=== PATIENT | female | born 1995 | race Caucasian/White ===

== ENCOUNTER 2020-08-09 12:49 | Outpatient (REF) | payer BC, SELFPAY | END 2020-08-09 12:50 | disposition home or self-care (01) | LOC: HO.LAB 12:49 | PROVIDERS: PCP Nurse Practitioner Family; Referring Provider Nurse Practitioner Family; Visit Provider Advanced Practice Midwife | DX: Z01.419 Encounter for gynecological examination (general) (routine) without abnormal findings (principal) | CPT/HCPCS: 88141; 88142 ==

== ENCOUNTER 2020-12-03 10:34 | Outpatient (REF) | payer BC, OTHER, SELFPAY ==
[2020-12-03 14:37] LABS: Alanine Aminotransferase 15 U/L (0-31); Albumin Level 4.3 g/dL (3.5-5.0); Alkaline Phosphatase 49 U/L (39-117); Anion Gap 11 (12-20); Aspartate Amino Transferase 16 U/L (5-31); Bilirubin Total 0.9 mg/dL (0.0-1.0); Blood Urea Nitrogen 13 mg/dL (9-16); Calcium 9.1 mg/dL (8.4-10.2); Carbon Dioxide 30 mmol/L (22-29); Chloride 103 mmol/L (96-108); Cholesterol 153 mg/dL; Estimated Glomerular Filt Rate > 60; Glucose Fasting 79 mg/dL (60-99); HDL Cholesterol 68 mg/dL; LDL Cholesterol Calculated 71 mg/dl; Potassium 4.2 mmol/L (3.3-5.1); Sodium 140 mmol/L (135-145); Total Protein 6.9 g/dL (6.5-8.0); Triglycerides 72 mg/dL
[2020-12-03 15:01] LABS: TSH reflex Free T4 1.05 uIU/mL (0.32-4.0)
== END 2020-12-03 10:35 | disposition home or self-care (01) ==
LOC: HO.HMGCLDS 10:34
PROVIDERS: PCP Nurse Practitioner Family; Visit Provider Nurse Practitioner Family
DX: Z00.00 Encounter for general adult medical examination without abnormal findings (principal)
CPT/HCPCS: 36415; 80053; 80061; 84443

== ENCOUNTER 2020-12-14 10:38 | Outpatient (REF) | payer BC, OTHER, SELFPAY | END 2020-12-14 10:39 | disposition home or self-care (01) | LOC: HO.LAB 10:38 | PROVIDERS: Visit Provider Nurse Practitioner Family | DX: J02.9 Acute pharyngitis, unspecified (principal); Z20.822 Contact with and (suspected) exposure to COVID-19 | CPT/HCPCS: 87071; U0003; U0005 ==

== ENCOUNTER 2021-05-27 14:13 | Outpatient (REF) | payer BC, OTHER, SELFPAY ==
[2021-05-27 16:16] LABS: CT PCR NOT DETECTED (Not Detect.); NG PCR NOT DETECTED (Not Detect.)
== END 2021-05-27 14:14 | disposition home or self-care (01) ==
LOC: HO.LNP 14:13
PROVIDERS: Visit Provider Nurse Practitioner Family
DX: Z11.3 Encounter for screening for infections with a predominantly sexual mode of transmission (principal); Z20.2 Contact with and (suspected) exposure to infections with a predominantly sexual mode of transmission
CPT/HCPCS: 87491; 87591

== ENCOUNTER → 2021-08-15 14:26 | Outpatient (BNVA) | payer BC, OTHER, SELFPAY | PROVIDERS: Visit Provider Advanced Practice Midwife ==

== ENCOUNTER 2021-08-23 14:19 | Outpatient (REF) | payer BC, OTHER, SELFPAY ==
--- NOTE | ~2021-08-23 | US_ITS ---
EXAMINATION: US DIAGNOSTIC ULTRASOUND BREAST, LEFT CLINICAL INFORMATION: 26-year-old with several months intermittent mastodynia. The No discharge or palpable mass. No prior breast imaging. No discharge. Family history breast cancer, maternal aunt. COMPARISON: None. TECHNIQUE: Ultrasound left breast is targeted to the 2:00 through 6:00 position. Patient notes no breast 3 time of imaging. Grayscale imaging and color Doppler are performed without and with harmonics. FINDINGS: There is a small simple cyst 2:00 position 3 cm from nipple measuring 0.8 x 0.5 cm. There is no solid mass or architectural abnormality. No focal duct ectasia. No hyperemia, skin thickening, or edema tracking in soft tissue planes. Results are discussed with the patient at time of visit. US/US breast LT limited IMPRESSION: 1. No ultrasound findings of malignancy or inflammatory changes. 2. Small simple cyst 2:00 position under 1 cm. ASSESSMENT: BI-RADS 2: Benign RECOMMENDATION: Patient's intermittent breast pain should be managed based on the clinical impression.
== END 2021-08-23 14:20 | disposition home or self-care (01) ==
LOC: HO.MAMMO 14:19
PROVIDERS: Visit Provider Advanced Practice Midwife
DX: N64.4 Mastodynia (principal); N60.02 Solitary cyst of left breast; Z80.3 Family history of malignant neoplasm of breast
CPT/HCPCS: 76642

== ENCOUNTER → 2021-08-30 15:58 | Outpatient (BNVA) | payer BC, OTHER, SELFPAY | PROVIDERS: Visit Provider Advanced Practice Midwife ==

== ENCOUNTER 2022-05-23 16:10 | Outpatient (REF) | payer BC, OTHER, SELFPAY ==
[2022-05-24 03:18] LABS: CT PCR NOT DETECTED (Not Detect.); NG PCR NOT DETECTED (Not Detect.)
[2022-05-24 13:20] LABS: BV Int Neg Control Negative (Negative); BV Int Pos Control Positive (Positive)
== END 2022-05-23 16:11 | disposition home or self-care (01) ==
LOC: HO.LNP 16:10
PROVIDERS: Visit Provider Advanced Practice Midwife
DX: Z11.3 Encounter for screening for infections with a predominantly sexual mode of transmission (principal); Z20.2 Contact with and (suspected) exposure to infections with a predominantly sexual mode of transmission
CPT/HCPCS: 87480; 87491; 87510; 87591; 87660

== ENCOUNTER 2022-05-23 16:31 | Outpatient (REF) | payer BC, OTHER, SELFPAY ==
[2022-05-24 05:28] LABS: HBc Num1 0.07 S/CO (0.00-0.79); HIV AB/AG Nonreactive (Nonreactive); HIV Num 1 0.06 S/CO (0.00-0.99); Hepatitis B Core Antibody Nonreactive (Nonreactive); ~HepC Num1 0.08 S/CO (0.00-0.79); ~Hepatitis C Antibody Nonreactive (Nonreactive)
[2022-05-24 05:36] LABS: Syphilis Screen Nonreactive (Nonreactive)
== END 2022-05-23 16:32 | disposition home or self-care (01) ==
LOC: HO.LAB 16:31
PROVIDERS: PCP Nurse Practitioner Family; Visit Provider Advanced Practice Midwife
DX: Z11.4 Encounter for screening for human immunodeficiency virus [HIV] (principal); Z20.2 Contact with and (suspected) exposure to infections with a predominantly sexual mode of transmission
CPT/HCPCS: 36415; 86704; 86780; 86803; 87389

== ENCOUNTER → 2022-06-15 13:57 | Outpatient (BNVA) | payer BC, OTHER, SELFPAY | PROVIDERS: PCP Nurse Practitioner Family; Visit Provider Advanced Practice Midwife | DX: Z30.430 Encounter for insertion of intrauterine contraceptive device (principal) | CPT/HCPCS: 58300; 81025; J7296 ==

== ENCOUNTER 2022-08-17 14:56 | Outpatient (REF) | payer BC, OTHER, SELFPAY ==
[2022-08-18 04:32] LABS: CT PCR NOT DETECTED (Not Detect.); NG PCR NOT DETECTED (Not Detect.)
== END 2022-08-17 14:57 | disposition home or self-care (01) ==
LOC: HO.LNP 14:56
PROVIDERS: Visit Provider Advanced Practice Midwife
DX: Z11.3 Encounter for screening for infections with a predominantly sexual mode of transmission (principal); Z20.2 Contact with and (suspected) exposure to infections with a predominantly sexual mode of transmission
CPT/HCPCS: 87491; 87591

== ENCOUNTER 2022-10-18 10:04 | Outpatient (REF) | payer OTHER, SELFPAY ==
[2022-10-18 16:28] LABS: CT PCR NOT DETECTED (Not Detect.)
[2022-10-18 16:29] LABS: NG PCR NOT DETECTED (Not Detect.)
[2022-10-19 11:15] LABS: BV Int Neg Control Negative (Negative); BV Int Pos Control Positive (Positive)
== END 2022-10-18 10:05 | disposition home or self-care (01) ==
LOC: HO.LAB 10:04
PROVIDERS: PCP Nurse Practitioner Family; Visit Provider Advanced Practice Midwife
DX: Z30.431 Encounter for routine checking of intrauterine contraceptive device (principal); R10.2 Pelvic and perineal pain
CPT/HCPCS: 0353U; 87480; 87510; 87660; 99212

== ENCOUNTER 2022-10-18 10:37 | Outpatient (REF) | payer OTHER, SELFPAY | END 2022-10-18 10:38 | disposition home or self-care (01) | LOC: HO.LNP 10:37 | PROVIDERS: Visit Provider Advanced Practice Midwife | DX: Z13.89 Encounter for screening for other disorder (principal) ==

== ENCOUNTER 2022-11-03 10:57 | Outpatient (REF) | payer OTHER, SELFPAY ==
[2022-11-03 14:01] LABS: MANUAL DIFF FLAG NO
[2022-11-03 14:15] LABS: Appearance Urine Clear; Color Urine Yellow; Glucose Urine UA Negative (Negative); Leukocyte Esterase Urine Trace (Negative); Nitrite Urine Negative (Negative); PH 8.5 (5.0-9.0); Specific Gravity - Urine 1.015 (1.005-1.025); UMIC TRIGGER UACC YES; Urine Blood Negative (Negative); Urine Ketones Negative (Negative); Urine Protein Negative (Neg-Trace)
[2022-11-03 14:27] LABS: Bacteria Urine 2+ (None Seen); Hyaline Casts Urine 0-2 /LPF (0-2); RBC Urine 0-2 /HPF (0-2); WBC Urine 0-5 /HPF (0-5)
[2022-11-03 14:37] LABS: Basophils Percent Auto 0.4 % (0-2); Eosinophils Absolute Auto 0.2 X10*3/uL (0.0-0.4); Eosinophils Percent Auto 3.2 % (0-4); Hematocrit 42.4 % (37.0-47.0); Hemoglobin 13.3 g/dl (12.0-16.0); Imm Gran Abs Auto 0.03 X10*3/uL (0.00-0.03); Imm Gran Pct Auto 0.4 % (0.0-0.4); Lymphocytes Absolute Auto 1.7 X10*3/uL (1.2-4.9); Lymphocytes Percent Auto 24.7 % (20-40); Mean Corpuscular HGB Conc 31.4 g/dl (31.0-35.0); Mean Corpuscular Hemoglobin 26.8 pg (27.0-33.0); Mean Corpuscular Volume 85.5 fL (80.0-98.0); Monocytes Absolute Auto 0.6 X10*3/uL (0.1-1.2); Monocytes Percent Auto 9.3 % (2-11); Neutrophils Absolute Auto 4.2 x10*3/uL (2.0-8.3); Platelet Count 279 X10*3/uL (160-400); Red Blood Count 4.96 X10*6/uL (4.20-5.50); Red Cell Distribution Width 14.1 % (11.0-16.0); White Blood Count 6.9 X10*3/uL (4.8-10.8)
[2022-11-03 15:00] LABS: Alanine Aminotransferase 14 U/L (0-31); Albumin Level 4.3 g/dL (3.5-5.0); Alkaline Phosphatase 79 U/L (39-117); Anion Gap 13 (12-20); Aspartate Amino Transferase 15 U/L (5-31); Bilirubin Total 1.6 mg/dL (0.0-1.0); Blood Urea Nitrogen 10 mg/dL (9-16); Calcium 9.5 mg/dL (8.4-10.2); Carbon Dioxide 28 mmol/L (22-29); Chloride 102 mmol/L (96-108); Cholesterol 158 mg/dL; Estimated Glomerular Filt Rate > 60; Glucose Fasting 95 mg/dL (60-99); HDL Cholesterol 48 mg/dL; LDL Cholesterol Calculated 94 mg/dl; Potassium 4.3 mmol/L (3.3-5.1); Sodium 139 mmol/L (135-145); Triglycerides 83 mg/dL
[2022-11-03 15:19] LABS: TSH reflex Free T4 1.45 uIU/mL (0.32-4.0)
== END 2022-11-03 10:58 | disposition home or self-care (01) ==
LOC: HO.HMGCLDS 10:57
PROVIDERS: PCP Nurse Practitioner Family; Visit Provider Nurse Practitioner Family
DX: Z00.00 Encounter for general adult medical examination without abnormal findings (principal)
CPT/HCPCS: 36415; 80053; 80061; 81001; 84443; 85025

== ENCOUNTER 2022-11-15 08:32 | Outpatient (REF) | payer OTHER, SELFPAY ==
--- NOTE | ~2022-11-15 | US_ITS ---
EXAMINATION: US ABDOMEN COMPLETE CLINICAL INFORMATION: Unspecified jaundice. COMPARISON: CT abdomen and pelvis without contrast 09/06/2016. TECHNIQUE: Real-time imaging of the abdominal viscera. FINDINGS: PANCREAS: Normal. ABDOMINAL AORTA: The proximal, mid, and distal segments are normal in caliber. INFERIOR VENA CAVA: Visualized portions are normal. LIVER: Normal. The liver is normal in size. The liver contour is normal. Parenchymal echogenicity is normal. No focal hepatic lesion. There is no intrahepatic biliary duct dilatation seen. GALLBLADDER: Normal. The gallbladder is physiologically distended without evidence of stones, sludge, polyps, wall thickening or pericholecystic fluid. COMMON BILE DUCT: Normal in caliber measuring 0.2 cm in diameter. RIGHT KIDNEY: Normal. No hydronephrosis. No renal calculi or focal parenchymal lesions. The kidney measures 10.4 cm in maximum dimension. LEFT KIDNEY: Normal. No hydronephrosis. No renal calculi or focal parenchymal lesions. The kidney measures 10.2 cm in maximum dimension. SPLEEN: Normal. The spleen measures 9.7 cm in maximum dimension. FREE FLUID: None. US/US abdomen complete IMPRESSION: No acute sonographic abnormalities to explain the patient's symptoms. If clinically deemed appropriate, consider correlation with an MR of the abdomen/MRCP to further investigate the cause of the jaundice.
== END 2022-11-15 08:33 | disposition home or self-care (01) ==
LOC: HO.HMGCX 08:32
PROVIDERS: PCP Nurse Practitioner Family; Visit Provider Nurse Practitioner Family
DX: R17 Unspecified jaundice (principal)
CPT/HCPCS: 76700

== ENCOUNTER 2022-12-08 11:58 | Outpatient (REF) | payer OTHER, SELFPAY ==
[2022-12-08 14:04] LABS: Immature Retic Fraction 5.6 % (3.0-15.9); Reticulocyte Percent 1.3 % (0.5-1.8); Reticulocytes Absolute 0.064 X10*6/uL (0.026-0.095)
[2022-12-08 14:06] LABS: Appearance Urine Clear; Color Urine Yellow; Glucose Urine UA Negative (Negative); Leukocyte Esterase Urine Small (1+) (Negative); Nitrite Urine Negative (Negative); PH 7.5 (5.0-9.0); UMIC TRIGGER UACC YES; Urine Blood Small (1+) (Negative); Urine Ketones Negative (Negative); Urine Protein Negative (Neg-Trace)
[2022-12-08 14:17] LABS: Bacteria Urine Trace (None Seen); Hyaline Casts Urine 0-2 /LPF (0-2); RBC Urine 0-2 /HPF (0-2); UACC Culture Trigger YES
[2022-12-08 14:19] LABS: Bilirubin Direct 0.3 mg/dL (0.0-0.5); Bilirubin Total 1.1 mg/dL (0.0-1.0); Lactate Dehydrogenase 139 U/L (122-220)
[2022-12-11 12:52] LABS: Haptoglobin 205 mg/dL (43-212)
[2022-12-16 06:42] LABS: Transglutaminase Ab IgG <1.0 U/mL; Transglutaminase IgA <1.0 U/mL
== END 2022-12-08 11:59 | disposition home or self-care (01) ==
LOC: HO.HMGCLDS 11:58
PROVIDERS: PCP Nurse Practitioner Family; Visit Provider Nurse Practitioner Family
DX: R17 Unspecified jaundice (principal); R82.90 Unspecified abnormal findings in urine
CPT/HCPCS: 36415; 81001; 81003; 82247; 82248; 83010; 83615; 85045; 86364; 87086

== ENCOUNTER 2023-05-12 09:18 | Outpatient (REF) | payer BC, SELFPAY ==
[2023-05-12 11:14] LABS: Alanine Aminotransferase 16 U/L (0-31); Aspartate Amino Transferase 20 U/L (5-31); Triglycerides 62 mg/dL (<150)
[2023-05-12 11:46] LABS: UPreg QC Valid YES; Urine Pregnancy NEGATIVE (NEGATIVE)
== END 2023-05-12 09:19 | disposition home or self-care (01) ==
LOC: HO.LAB 09:18
PROVIDERS: PCP Nurse Practitioner Family; Visit Provider Physician Assistant Medical
DX: L70.0 Acne vulgaris (principal)
CPT/HCPCS: 36415; 81025; 84450; 84460; 84478

== ENCOUNTER 2023-06-12 09:41 | Outpatient (REF) | payer BC, SELFPAY | END 2023-06-12 09:42 | disposition home or self-care (01) | LOC: HO.LABR 09:41 | PROVIDERS: PCP Nurse Practitioner Family; Visit Provider Physician Assistant Medical | DX: L70.0 Acne vulgaris (principal) | CPT/HCPCS: 81025 ==

== ENCOUNTER 2023-09-13 09:58 | Outpatient (AMB) | payer BC, SELFPAY ==
--- NOTE | 2023-09-13 09:59 | MHC.OFFVIS ---
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 Doing well with no concerns. She tries to eat healthy and stays active with exercise. Regular monthly menses. Kyleena in place. Currently is sexually active. She denies vaginal itching and irritation. STI screening offered; she accepts culture only. Denies family history of ovarian or colon cancer. FH-breast cancer. Last pap smear 2019, negative. PFS Medical History History of anxiety Hx of acne Surgical History Hx of wisdom tooth extraction Family History Mother Hypertension Maternal Grandfather Dementia Substance use disorder Paternal Grandmother TIA (transient ischemic attack) Maternal Aunt Breast CA Maternal Uncle Substance use disorder Mental health disorder Brother Substance use disorder Mental health disorder Maternal Grandmother Substance use disorder Paternal Aunt Mental health disorder Social History Housing: House Alcohol intake: current Alcohol intake frequency: a few times a week Patient Tobacco Use Status: Never used Tobacco e-Cigarette/Vaping Use: Never Used Second Hand Smoke Exposure: No service: No Current occupational status: unemployed Sexual orientation: Straight/Heterosexual Cognitive needs: No Hearing needs: No Vision needs: No Female Reproductive History Menstrual Age of Menarche: 13 Duration of menses: 3-5 days Date of last menstrual period: 09/03/23 control method: progestin IUCD (Kyleena inserted ) Total pregnancies: 0 Date of last pap smear: 08/11/20 (negative) History of abnormal pap smear: Yes (2018 [facility]) Review of Systems Const All systems reviewed & are unremarkable except as noted in HPI and below Reports as per HPI Eyes Reports no additional complaints ENT Reports no additional complaints Card Reports no additional complaints Resp Reports no additional complaints GI Reports as per HPI and Reports no additional complaints Reports as per HPI Musc Reports no additional complaints Skin/Breast Reports as per HPI Neuro Reports no additional complaints Psych Reports no additional complaints Endo Reports no additional complaints Josiah/Lymph Reports no additional complaints Aller/Immun Reports no additional complaints Physical Exam Vital Signs: Last Vital Signs BP 102/56 L 09/13/23 10:00 BMI result Body Mass Index 23.3 Const General: cooperative, healthy appearing, no acute distress, well developed and alert Orientation/consciousness: patient oriented x3 HEENT Head: Yes normal to inspection Eyes General: appearance normal, both eyes and all related structures Neck Neck: Yes normal visual inspection Thyroid: Thyroid normal Chest Chest palpation & inspection: normal inspection of the chest and other (no puckering, dimpling, peau de orange, retraction, discharge, masses) Breast/axilla inspection: normal inspection of the breasts Breast/axilla palpation: normal palpation of the breasts Resp Effort & Inspection: normal respiratory effort GI Inspection: Yes normal to inspection Palpation (GI): Soft to palpation Rectal Exam - Female: deferred General: Yes bladder normal to palpation External Female Exam: normal external appearance and normal appearance of the urethra Speculum Exam - Vagina: normal appearance of the vagina, normal palpation and normal vaginal discharge Speculum Exam - Cervix: normal appearance of the cervix, normal palpation and Other cervical findings present (IUD strings present) Bimanual exam- vagina & uterus: normal bimanual exam, normal palpation, uterine size normal, bladder normal to palpation, normal palpation and non-tender Bimanual Exam- Adnexa, other: no masses Skin General skin exam: no rashes or lesions noted Rashes: no rashes Neuro General: patient oriented x3 Cognition (Neuro): normal cognition Extrem General: Yes normal to inspection Psych Attitude: cooperative Thought process: Normal thought process present Assessment & Plan Assessment & Plan (1) Encounter for well woman exam with routine gynecological exam: Code(s): Z01.419 - Encounter for gynecological examination (general) (routine) without abnormal findings Plan Discussed: Current recommendations for pap smears per ASCCP guidelines. Breast awareness and periodic breast exams. Maintain a healthy lifestyle including a well balanced diet and routine exercise. All of her questions and concerns were addressed to the best of my ability. RTO in one year for annual sports anchor examination. This note is constructed using voice recognition software. While every effort has been made to ensure accuracy, collection systems technician errors may have been included. Coding Level of Care Code Est Pt Prev Care 18-39y(90055) Diagnoses Encounter for well woman exam with routine gynecological exam Z01.419
[2023-09-13 10:00] VITALS: BP 102/56; BMI 23.3
== END 2023-09-13 10:23 | disposition home or self-care (01) ==
LOC: HO.HWS 09:58
PROVIDERS: PCP Nurse Practitioner Family; Visit Provider Advanced Practice Midwife
DX: Z01.419 Encounter for gynecological examination (general) (routine) without abnormal findings (principal)
CPT/HCPCS: 99395

== ENCOUNTER 2023-09-13 09:58 | Outpatient (REF) | payer BC, SELFPAY ==
[2023-09-13 15:40] LABS: CT PCR NOT DETECTED (Not Detect.); NG PCR NOT DETECTED (Not Detect.)
== END 2023-09-13 09:59 | disposition home or self-care (01) ==
LOC: HO.LNP 09:58
PROVIDERS: PCP Nurse Practitioner Family; Visit Provider Advanced Practice Midwife
DX: Z01.419 Encounter for gynecological examination (general) (routine) without abnormal findings (principal); Z20.2 Contact with and (suspected) exposure to infections with a predominantly sexual mode of transmission
CPT/HCPCS: 0353U; 88142

== ENCOUNTER 2023-11-06 16:28 | Outpatient (AMB) | payer BC, SELFPAY ==
--- NOTE | 2023-11-06 16:40 | MHC.PC.OV ---
Vital Signs 11/06/23 16:41 Height 5 ft 8 in Weight 154 lb 8 oz BMI 23.5 BP 102/60 Blood Pressure Location Lt brachial Position Sitting Pulse 87 Pulse Source Pulse Oximeter Pulse Oximetry (%) 98 Oxygen Delivery Method Room Air Intake Visit Reasons: PE Intake Note: pt is here for annual exam Music Sound Light Technician Required: No Accompanied by: Self / Same As Patient Allergies Sulfa (Sulfonamide Antibiotics) [SULFA (SULFONAMIDE ANTIBIOTICS)] Allergy (Intermediate, Verified 11/06/23 17:36) HIVES Medication List - Last Reconciled 11/06/23 by MODESTO Kidd buspirone 10 mg PO BID cholecalciferol (vitamin D3) 50 mcg PO DAILY 90 days clonazepam 0.5 mg PO DAILY PRN 30 days isotretinoin (Accutane) 60 mg PO BID levonorgestrel (Kyleena) intrauterine valacyclovir 2,000 mg (2 x 1 gram) PO BID 1 day Tobacco use date assessed: 11/06/23 Dental Screening Dental Screen Date: 11/06/23 Did you have a dental visit in the last 12 months?: Yes Did you have a dental problem in the last 6 months where you did not have access to dental care?: No Was dental information given to patient?: Patient has dentist HPI PE HPI Details Pt is here for a PE. Will order labs. Has a information technology program manager. sees dermatology [facility] Medical History History of anxiety Hx of acne Surgical History Hx of wisdom tooth extraction Family History Mother Hypertension Maternal Grandfather Dementia Substance use disorder Paternal Grandmother TIA (transient ischemic attack) Maternal Aunt Breast CA Maternal Uncle Substance use disorder Mental health disorder Brother Substance use disorder Mental health disorder Maternal Grandmother Substance use disorder Paternal Aunt Mental health disorder Social History Housing: House Alcohol intake: current Alcohol intake frequency: a few times a week Patient Tobacco Use Status: Never used Tobacco e-Cigarette/Vaping Use: Never Used Second Hand Smoke Exposure: No service: No Current occupational status: unemployed Sexual orientation: Straight/Heterosexual Cognitive needs: No Hearing needs: No Vision needs: No Female Reproductive History Menstrual Age of Menarche: 13 Questionnaire PHQ-9 Over the last 2 weeks, how often have you been bothered by any of the following problems? 1. Little interest or pleasure in doing things: not at all 2. Feeling down, depressed, or hopeless: not at all 3. Trouble falling or staying asleep, or sleeping too much: several days 4. Feeling tired or having little energy: several days 5. Poor appetite or overeating: not at all 6. Feeling bad about yourself - or that you are a failure or have let yourself or your family down: several days 7. Trouble concentrating on things, such as reading the newspaper or watching television: not at all 8. Moving or speaking so slowly that other people could have noticed. Or the opposite - being so fidgety or restless that you have been moving around a lot more than usual: not at all 9. Thoughts that you would be better off or of hurting yourself in some way: not at all Total score: 3 Depression Screening Interpretation: Negative Depression Screening Done: Yes 25324 - PHQ-9 Billing: Yes Source: Developed by Drs. Ap Rodriguez, Pauline Licona, Tico Leyva and colleagues, with an educational cass from [employer]. Thrive Questionnaire Date Thrive assessed: 11/06/23 I am a: Patient What is your living situation today?: I have a steady place to live Within the past 12 months, did the food you bought not last and you didn't have the money to get more?: Never true Within the past 12 months, did you worry whether your food would run out before you got money to buy more?: Never true Do you have trouble paying for medicines?: No Do you have trouble getting transportation to medical appointments?: No Do you have trouble paying your heating and electricity bill?: No Do you have trouble taking care of your child, family member or friend?: No Do you have trouble with day-to-day activities such as bathing, preparing meals, shopping, managing finances, etc.?: No Are you currently unemployed and looking for a job?: No Are you interested in more education?: No Please select the resources that you would like help with: None Currently or been in a relationship where the following occur: no concerns reported THRIVE Score: 0 LOUIE-7 AMB Questionnaire LOUIE-7 Date LOUIE - 7 assessed: 11/06/23 Feeling nervous, anxious, or on edge: 1 = Several days Not being able to stop or control worryin = Not at all Worrying too much about different things: 0 = Not at all Trouble relaxin = Several days Being so restless that it is hard to sit still: 0 = Not at all Becoming easily annoyed or irritable: 0 = Not at all Feeling afraid as if something awful might happen: 0 = Not at all Total LOUIE-7 score (0-4 normal; 5-9 mild; 10-14 moderate; 15-21 severe): 2 Source: Developed by Drs. Ap Rodriguez, Pauline Licona, Tico Leyva and colleagues, with an educational cass from [employer]. LOUIE-7 Assessment Billing LOUIE-7 Assessment Tool: LOUIE-7 Assessment 75223 Review of Systems Const Denies chills and Denies fever(s) Eyes Denies blurry vision ENT Denies vertigo, Denies dizziness and Denies sore throat Card Denies chest pain at rest, Denies chest pain with activity, Denies diaphoresis, Denies dyspnea and Denies dyspnea on exertion Resp Denies cough, Denies dyspnea, Denies dyspnea on exertion and Denies wheezing GI Denies abdominal pain, Denies melena, Denies hematochezia, Denies constipation, Denies diarrhea and Denies loose stools Denies hematuria Musc Denies numbness and Denies tingling Skin/Breast Denies lesions Neuro Denies vertigo, Denies dizziness, Denies numbness and Denies tingling Psych Denies anxiety, Denies depression, Denies homicidal ideation, Denies suicidal ideation and Denies other (substance abuse) Aller/Immun Denies wheezing Physical exam (Primary Care) Vital Signs: Last Vital Signs Pulse 87 11/06/23 16:41 BP 102/60 11/06/23 16:41 Pulse Ox 98 11/06/23 16:41 Oxygen Delivery Method Room Air 11/06/23 16:41 BMI result Body Mass Index 23.5 Tobacco/Smoking Status: Tobacco use Status Tobacco use date assessed 11/06/23 11/06/23 16:44 Patient Tobacco Use Status Never used Tobacco 11/06/23 16:40 e-Cigarette/Vaping Use Never Used 11/06/23 16:40 PHQ-9: PHQ-9 Score PHQ-9: Total score 3 11/06/23 16:49 Depression Screening Interpretation: Negative Thrive Assessment: Date of Thrive Assessment Date Thrive assessed 11/06/23 11/06/23 16:44 Currently or been in a relationship where the following occur: no concerns reported Const General: cooperative Nutritional Appearance: well nourished Orientation/consciousness: patient oriented x3 HENMT Head: Yes normal to inspection, Yes normocephalic and Yes atraumatic Ears: TM's normal bilaterally Eyes General: appearance normal, both eyes and all related structures Alignment and Position: alignment normal and position normal Neck Neck: Yes normal visual inspection and Yes no lymphadenopathy Thyroid: Thyroid normal Resp Effort & Inspection: normal respiratory effort Auscultation: clear to auscultation bilaterally Cardio Rate: regular rate Rhythm: regular rhythm Heart sounds: S1 normal heart sound present, S2 normal heart sound present and no murmurs GI Palpation (GI): Soft to palpation and nontender Auscultation: normal bowel sounds Skin Rashes: no rashes Neuro General: patient oriented x3, moves all extremities, no focal motor deficits and deep tendon reflexes 2+ bilaterally Romberg Test: Negative Psych Appearance: grossly normal Mental Status: mental status grossly normal Speech and movement: Normal speech and movement present Affect: normal affect Attitude: cooperative Thought process: Normal thought process present Thought content: Normal thought content present Insight: Good insight present (Psych) Judgement: Good judgement present (Psych) Assessment and Plan Assessment & Plan (1) Physical exam: Code(s): Z00.00 - Encounter for general adult medical examination without abnormal findings Orders: Orders UA CC w/rflx Micro + Cult Today Z00.00 - Encounter for general adult medical examination without abnormal findings Complete Blood Count Auto Diff Today Z00.00 - Encounter for general adult medical examination without abnormal findings Comprehensive [place]. Panel Fast Today Z00.00 - Encounter for general adult medical examination without abnormal findings TSH reflex Free T4 Today Z00.00 - Encounter for general adult medical examination without abnormal findings Lipid Panel Today Z00.00 - Encounter for general adult medical examination without abnormal findings Coding Level of Care Code Est Pt Prev Care 18-39y(67448) Diagnoses Physical exam Z00.00 Additional Codes LOUIE-7 Assessment Billing - LOUIE-7 Assessment Tool: LOUIE-7 Assessment 54094 ([id number])
[2023-11-06 16:41] VITALS: BP 102/60; PULSE 87; O2SAT 98; BMI 23.5
== END 2023-11-06 17:02 | disposition home or self-care (01) ==
PROVIDERS: Visit Provider Nurse Practitioner Family
DX: Z00.00 Encounter for general adult medical examination without abnormal findings (principal)
CPT/HCPCS: 99395

== ENCOUNTER 2023-11-09 10:08 | Outpatient (REF) | payer BC, SELFPAY ==
[2023-11-09 13:01] LABS: Appearance Urine Clear; Color Urine Yellow; Glucose Urine UA Negative (Negative); Leukocyte Esterase Urine Negative (Negative); Nitrite Urine Negative (Negative); PH 6.5 (5.0-9.0); Urine Blood Negative (Negative); Urine Ketones Negative (Negative); Urine Protein Negative (Neg-Trace)
[2023-11-09 13:14] LABS: MANUAL DIFF FLAG NO
[2023-11-09 13:33] LABS: Basophils Percent Auto 0.4 % (0-2); Eosinophils Absolute Auto 0.2 X10*3/uL (0.0-0.4); Eosinophils Percent Auto 2.7 % (0-4); Hematocrit 40.5 % (37.0-47.0); Hemoglobin 12.8 g/dl (12.0-16.0); Imm Gran Abs Auto 0.04 X10*3/uL (0.00-0.03); Imm Gran Pct Auto 0.5 % (0.0-0.4); Lymphocytes Absolute Auto 2.3 X10*3/uL (1.2-4.9); Lymphocytes Percent Auto 30.8 % (20-40); Mean Corpuscular HGB Conc 31.6 g/dl (31.0-35.0); Mean Corpuscular Hemoglobin 26.8 pg (27.0-33.0); Mean Corpuscular Volume 84.9 fL (80.0-98.0); Mean Platelet Volume 10.7 fL (9.4-12.3); Monocytes Absolute Auto 0.6 X10*3/uL (0.1-1.2); Monocytes Percent Auto 7.7 % (2-11); Neutrophils Absolute Auto 4.3 x10*3/uL (2.0-8.3); Neutrophils Percent Auto 57.9 % (45-73); Platelet Count 269 X10*3/uL (160-400); Red Blood Count 4.77 X10*6/uL (4.20-5.50); Red Cell Distribution Width 13.1 % (11.0-16.0); White Blood Count 7.4 X10*3/uL (4.8-10.8)
[2023-11-09 14:50] LABS: Alanine Aminotransferase 19 U/L (0-31); Albumin Level 4.3 g/dL (3.5-5.0); Alkaline Phosphatase 71 U/L (39-117); Anion Gap 12 (12-20); Aspartate Amino Transferase 20 U/L (5-31); Bilirubin Total 0.6 mg/dL (0.0-1.0); Blood Urea Nitrogen 11 mg/dL (9-16); Calcium 9.3 mg/dL (8.4-10.2); Carbon Dioxide 28 mmol/L (22-29); Chloride 103 mmol/L (96-108); Cholesterol 177 mg/dL (<200); Estimated Glomerular Filt Rate > 60; Glucose Fasting 93 mg/dL (60-99); HDL Cholesterol 31 mg/dL (>40); LDL Cholesterol Calculated 125 mg/dL (<100); Potassium 3.6 mmol/L (3.3-5.1); Sodium 139 mmol/L (135-145); Total Protein 7.2 g/dL (6.5-8.0); Triglycerides 107 mg/dL (<150)
[2023-11-09 15:05] LABS: TSH reflex Free T4 1.45 uIU/mL (0.32-4.0)
== END 2023-11-09 10:09 | disposition home or self-care (01) ==
LOC: HO.HMGCLDS 10:08
PROVIDERS: PCP Nurse Practitioner Family; Visit Provider Nurse Practitioner Family
DX: Z00.00 Encounter for general adult medical examination without abnormal findings (principal); Z13.6 Encounter for screening for cardiovascular disorders
CPT/HCPCS: 36415; 80053; 80061; 81003; 84443; 85025

== ENCOUNTER 2024-09-24 14:34 | Outpatient (AMB) | payer BC, SELFPAY ==
--- NOTE | 2024-09-24 14:47 | MHC.OFFVIS ---
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 Doing well with no retail selling specialist concerns. Regular monthly menses, has a Kyleena in place. Plans to be wet next winter and wants her IUD out in June for prepregnancy planning. Currently is sexually active. She denies vaginal itching and irritation. STI screening offered; she declines. She tries to eat healthy and stays active with exercise. Denies family history of ovarian or colon cancer. FH breast cancer. Last pap smear 2023, negative. [facility] Medical History (Updated 09/24/24 @ 14:59 by Tierney Ponce CNM) IUD (intrauterine device) in place History of anxiety Hx of acne Surgical History Hx of wisdom tooth extraction Family History Mother Hypertension Maternal Grandfather Dementia Substance use disorder Paternal Grandmother TIA (transient ischemic attack) Maternal Aunt Breast CA Maternal Uncle Substance use disorder Mental health disorder Brother Substance use disorder Mental health disorder Maternal Grandmother Substance use disorder Paternal Aunt Mental health disorder Social History Housing: House Alcohol intake: current Alcohol intake frequency: a few times a week Patient Tobacco Use Status: Never used Tobacco e-Cigarette/Vaping Use: Never Used Second Hand Smoke Exposure: No service: No Current occupational status: unemployed Sexual orientation: Straight/Heterosexual Cognitive needs: No Hearing needs: No Vision needs: No Female Reproductive History Menstrual Age of Menarche: 13 control method: progestin IUCD (Kyleena 06/2022) Total pregnancies: 0 Date of last pap smear: 09/13/23 (neg) History of abnormal pap smear: Yes (06/20 ascus +hpv) Review of Systems Const All systems reviewed & are unremarkable except as noted in HPI and below Reports as per HPI Eyes Reports no additional complaints ENT Reports no additional complaints Card Reports no additional complaints Resp Reports no additional complaints GI Reports as per HPI and Reports no additional complaints Reports as per HPI Musc Reports no additional complaints Skin/Breast Reports as per HPI Neuro Reports no additional complaints Psych Reports no additional complaints Endo Reports no additional complaints Josiah/Lymph Reports no additional complaints Aller/Immun Reports no additional complaints Physical Exam Vital Signs: Last Vital Signs BP 104/66 09/24/24 14:53 BMI result Body Mass Index 24.9 Const General: cooperative, healthy appearing, no acute distress, well developed and alert Orientation/consciousness: patient oriented x3 HEENT Head: Yes normal to inspection Eyes General: appearance normal, both eyes and all related structures Neck Neck: Yes normal visual inspection Thyroid: Thyroid normal Chest Chest palpation & inspection: normal inspection of the chest and other (no puckering, dimpling, peau de orange, retraction, discharge, masses) Breast/axilla inspection: normal inspection of the breasts Breast/axilla palpation: normal palpation of the breasts Resp Effort & Inspection: normal respiratory effort GI Inspection: Yes normal to inspection Palpation (GI): Soft to palpation Rectal Exam - Female: deferred General: Yes bladder normal to palpation External Female Exam: normal external appearance and normal appearance of the urethra Speculum Exam - Vagina: normal appearance of the vagina, normal palpation and normal vaginal discharge Speculum Exam - Cervix: normal appearance of the cervix, normal palpation and Other cervical findings present (IUD strings at the os) Bimanual exam- vagina & uterus: normal bimanual exam, normal palpation, uterine size normal, bladder normal to palpation, normal palpation and non-tender Bimanual Exam- Adnexa, other: no masses Skin General skin exam: no rashes or lesions noted Rashes: no rashes Neuro General: patient oriented x3 Cognition (Neuro): normal cognition Extrem General: Yes normal to inspection Psych Attitude: cooperative Thought process: Normal thought process present Assessment & Plan Assessment & Plan (1) Encounter for well woman exam with routine gynecological exam: Code(s): Z01.419 - Encounter for gynecological examination (general) (routine) without abnormal findings Category: Medical Plan Discussed: Current recommendations for pap smears per ASCCP guidelines. Pap obtained today. Breast awareness and periodic breast exams. Maintain a healthy lifestyle including a well balanced diet and routine exercise. Schedule Kyleena removal in 06/22/2025. Discuss vitamins for the benefit of folic acid she prefers to wait to start them. Patient verbalizes understanding and agrees to the plan of care. She was given opportunity to ask questions and all questions were answered to the best of my ability. RTO in one year for annual retail selling specialist examination. This note is constructed using voice recognition software. While every effort has been made to ensure accuracy, vocational technical education teacher errors may have been included. Coding Level of Care Code Est Pt Prev Care 18-39y(00237) Diagnoses Encounter for well woman exam with routine gynecological exam Z01.419
[2024-09-24 14:48] VITALS: BMI 24.9
[2024-09-24 14:53] VITALS: BP 104/66; BMI 24.9
== END 2024-09-24 15:19 | disposition home or self-care (01) ==
PROVIDERS: PCP Nurse Practitioner Family; Visit Provider Advanced Practice Midwife
DX: Z01.419 Encounter for gynecological examination (general) (routine) without abnormal findings (principal)
CPT/HCPCS: 99395; 99459

== ENCOUNTER 2024-09-24 14:34 | Outpatient (REF) | payer BC, SELFPAY ==
[2024-09-30 12:37] LABS: HPV Genotype 16 Negative (Negative); HPV Genotype 18 Negative (Negative); HPV High Risk Negative (Negative)
== END 2024-09-24 14:35 | disposition home or self-care (01) ==
LOC: HO.LNP 14:34
PROVIDERS: PCP Nurse Practitioner Family; Visit Provider Advanced Practice Midwife
DX: Z01.419 Encounter for gynecological examination (general) (routine) without abnormal findings (principal); Z11.51 Encounter for screening for human papillomavirus (HPV); Z97.5 Presence of (intrauterine) contraceptive device
CPT/HCPCS: 87626; 88175

== ENCOUNTER 2024-12-02 15:10 | Outpatient (AMB) | payer BC, SELFPAY ==
[2024-12-02 15:36] VITALS: BP 110/70; PULSE 90; O2SAT 100; BMI 26.5
--- NOTE | 2024-12-02 15:36 | A.OFFPC_ITS ---
Vital Signs 12/02/24 15:36 Height 5 ft 8 in Weight 174 lb BMI 26.5 BP 110/70 Blood Pressure Location Lt brachial Position Sitting Pulse 90 Pulse Source Pulse Oximeter Pulse Oximetry (%) 100 Intake Visit Reasons: PE-update last name Run Lead Required: No Accompanied by: Self / Same As Patient Allergies Sulfa (Sulfonamide Antibiotics) [SULFA (SULFONAMIDE ANTIBIOTICS)] Allergy (Intermediate, Verified 12/02/24 15:37) HIVES Medication List - Last Reconciled 12/02/24 by Brian Land [facility] buspirone 10 mg PO BID cholecalciferol (vitamin D3) 50 mcg PO DAILY 90 days clonazepam 0.5 mg PO DAILY PRN 30 days levonorgestrel (Kyleena) intrauterine valacyclovir 2,000 mg (2 x 1 gram) PO BID 1 day Tobacco use date assessed: 12/02/24 Dental Screening Dental Screen Date: 12/02/24 Did you have a dental visit in the last 12 months?: Yes Did you have a dental problem in the last 6 months where you did not have access to dental care?: No Was dental information given to patient?: Patient has dentist HPI PE-update last name HPI Details History of Present Illness The patient is a 29-year-old female presenting for a follow-up related to her physical exam. Currently, she reports a cold sore on her bottom lip, which is healing but exhibits some cracking. The patient denies any other significant symptoms such as chest pain, shortness of breath, fever, chills, abdominal discomfort, or gastrointestinal disturbances such as blood in stool, constipation, or diarrhea. 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 If the sores continue to manifest frequently, a long-term management strategy may be explored. Health Maintenance Social History - The patient is getting in [facility] and expresses excitement about this life event. Review of Systems - Chest: Denies chest pain, shortness of breath - Constitutional: Denies fever, chills - Gastrointestinal: Denies abdominal sharda n, blood in stool, constipation, diarrhea denies any urinary issues - Psychiatric: Denies suicidal ideation, homicidal thoughts Physical Exam General: Cooperative, healthy appearing, comfortable, no acute distress and well developed Orientation: Patient oriented x3 Limitations: No limitations Head: Normal to inspection Ears: Hearing grossly normal bilaterally Nose: Normal external nose present Face and sinus: Cold sore present on the bottom lip, healing with some cracking Eyes: Appearance normal, both eyes and all related structures Neck: Normal visual inspection and Yes full ROM Respiratory: Normal respiratory effort and able to speak in complete sentences. Clear to auscultation bilaterally Cardiovascular: Regular rate and rhythm. Normal S1 and S2 GI: Normal to inspection. Soft to palpation and nontender Skin: healing vesicles to lower id lip, and just inferior to lower lip, no signs of secondary infection noted Neuro: Patient oriented x3 Extremities: Normal to inspection Results Plan The current care plan includes initiating Valcyclovir for the management of the cold sore. The patient was advised to apply Vaseline to aid in healing and prevent cracking. A consideration for long-term antiviral therapy will be evaluated based on the frequency and response to the current treatment plan. The patient will update on the effectiveness of the medication. Discussion Notes I discussed with the patient the use of Valcyclovir for treating her current cold sore and the potential need for long-term treatment if episodes become freq uent. The use of Vaseline as a simple home measure to prevent lip cracking was also recommended. She understands that further evaluation may be needed if the condition persists or worsens. We will reassess her condition and treatment efficacy at a follow-up visit if necessary. Patient Instructions - Start taking Valcyclovir as prescribed today. - Apply Vaseline to the cold sore area t o keep it moist. - Monitor the frequency of cold sores an d report if they occur often. - Inform me of the effectiveness of Valc yclovir in managing your symptoms. - Watch for any worsening or new symptom s and seek care accordingly. [facility] Medical History IUD (intrauterine device) in place History of anxiety Hx of acne Surgical History Hx of wisdom tooth extraction Family History Mother Hypertension Maternal Grandfather Dementia Substance use disorder Paternal Grandmother TIA (transient ischemic attack) Maternal Aunt Breast CA Maternal Uncle Substance use disorder Mental health disorder Brother Substance use disorder Mental health disorder Maternal Grandmother Substance use disorder Paternal Aunt Mental health disorder Social History Housing: House Alcohol intake: current Alcohol intake frequency: a few times a week Patient Tobacco Use Status: Never used Tobacco e-Cigarette/Vaping Use: Never Used Second Hand Smoke Exposure: No service: No Current occupational status: unemployed Sexual orientation: Straight/Heterosexual Cognitive needs: No Hearing needs: No Vision needs: No Female Reproductive History Menstrual Age of Menarche: 13 Questionnaire PHQ-9 Over the last 2 weeks, how often have you been bothered by any of the following problems? 1. Little interest or pleasure in doing things: not at all 2. Feeling down, depressed, or hopeless: not at all 3. Trouble falling or staying asleep, or sleeping too much: not at all 4. Feeling tired or having little energy: not at all 5. Poor appetite or overeating: not at all 6. Feeling bad about yourself - or that you are a failure or have let yourself or your family down: not at all 7. Trouble concentrating on things, such as reading the newspaper or watching television: not at all 8. Moving or speaking so slowly that other people could have noticed. Or the opposite - being so fidgety or restless that you have been moving around a lot more than usual: not at all 9. Thoughts that you would be better off or of hurting yourself in some way: not at all Total score: 0 Depression Screening Interpretation: Negative Depression Screening Done: Yes 80916 - PHQ-9 Billing: Yes Source: Developed by Drs. Ap Rodriguez, Pauline Licona, Tico Leyva and colleagues, with an educational cass from [employer]. Thrive Questionnaire Date Thrive assessed: 11/25/24 I am a: Patient What is your living situation today?: I have a steady place to live Within the past 12 months, did the food you bought not last and you didn't have the money to get more?: Never true Within the past 12 months, did you worry whether your food would run out before you got money to buy more?: Never true Do you have trouble paying for medicines?: No Do you have trouble getting transportation to medical appointments?: No Do you have trouble paying your heating and electricity bill?: No Do you have trouble taking care of your child, family member or friend?: No Do you have trouble with day-to-day activities such as bathing, preparing meals, shopping, managing finances, etc.?: No Are you currently unemployed and looking for a job?: No Are you interested in more education?: No Please select the resources that you would like help with: None Currently or been in a relationship where the following occur: I choose not to answer THRIVE Score: 0 AUDIT C Alcohol Use Questionnaire (AUDIT-C) 1. How often do you have a drink containing alcohol?: 2-4 times a month 2. How many drinks containing alcohol do you have on a typical day when you are drinking?: 3 or 4 3. How often do you have six or more drinks on one occasion?: Less than monthly Total Score: 4 Score Reviewed/Action Taken: Yes LOUIE-7 AMB Questionnaire LOUIE-7 Date LOUIE - 7 assessed: 12/02/24 Feeling nervous, anxious, or on edge: 1 = Several days Not being able to stop or control worryin = Not at all Worrying too much about different things: 0 = Not at all Trouble relaxin = Several days Being so restless that it is hard to sit still: 0 = Not at all Becoming easily annoyed or irritable: 1 = Several days Feeling afraid as if something awful might happen: 0 = Not at all Total LOUIE-7 score (0-4 normal; 5-9 mild; 10-14 moderate; 15-21 severe): 3 Source: Developed by Drs. Ap Rodriguez, Pauline Licona, Tico Leyva and colleagues, with an educational cass from [employer]. LOUIE-7 Assessment Billing LOUIE-7 Assessment Tool: LOUIE-7 Assessment 42696 Physical exam (Primary Care) Vital Signs: Last Vital Signs Pulse 90 12/02/24 15:36 BP 110/70 12/02/24 15:36 Pulse Ox 100 12/02/24 15:36 BMI result Body Mass Index 26.5 Tobacco/Smoking Status: Tobacco use Status Tobacco use date assessed 12/02/24 12/02/24 15:38 Patient Tobacco Use Status Never used Tobacco 12/02/24 15:38 e-Cigarette/Vaping Use Never Used 12/02/24 15:38 PHQ-9: PHQ-9 Score PHQ-9: Total score 0 12/02/24 15:38 Depression Screening Interpretation: Negative Thrive Assessment: Date of Thrive Assessment Date Thrive assessed 11/25/24 12/02/24 15:38 Currently or been in a relationship where the following occur: I choose not to answer Coding Level of Care Code Est Pt Prev Care 18-39y(69302) Diagnoses Physical exam Z00.00 H/O cold sores Z86.19 Additional Codes LUOIE-7 Assessment Billing - LOUIE-7 Assessment Tool: LOUIE-7 Assessment 46086 ([id number]) PHQ-9 - 95213 - PHQ-9 Billing: Yes ([id number]) Assessment & Plan Assessment & Plan (1) Physical exam: Code(s): Z00.00 - Encounter for general adult medical examination without abnormal findings Category: Medical (2) H/O cold sores: Code(s): Z86.19 - Personal history of other infectious and parasitic diseases Category: Medical Plan . Orders: Orders Comprehensive [place]. Panel Fast Today Z00.00 - Encounter for general adult medical examination without abnormal findings TSH reflex Free T4 Today Z00.00 - Encounter for general adult medical examination without abnormal findings Complete Blood Count Auto Diff Today Z00.00 - Encounter for general adult medical examination without abnormal findings UA CC w/rflx Micro + Cult Today Z00.00 - Encounter for general adult medical examination without abnormal findings Lipid Panel Today Z00.00 - Encounter for general adult medical examination without abnormal findings
--- OUTSIDE RECORDS SUMMARY | 2024-12-02 18:01 | XMS_ITS | Encounter Summary ---
Author Organization [facility] Address [address] [place] [address] Phone Care Team Providers Care Winter Intern Name Role Phone Britany Brito MD Primary Care Provider Encounter Details Date Type Department Care Team (Late st Contact Info) Description 01/23/2013 Documentation [facility] [place] Family Medicine [address] [place], [place] [phone] Family Medicine, Physician [address] [place], [place] [address]191 Social History Tobacco Use Types Packs/Day Years Used Date Smoking Tobacco: Never Assessed Comments Unknown Sex and Gender Information Value Date Recorded Sex Assigned at Not on file Legal Sex Female 4:45 PM EDT Gender Identity Not on file Sexual Orientation Not on file documented as of this encounter Plan of Treatment Not on file documented as of this encounter Visit Diagnoses Not on filedocumented in this encounter Care Teams Winter Intern Relationship Specialty Start Date End Date Britany Brito MD [address] [place] [address] [place] [address] PCP - General 04/13/17 02/21/23 documented as of this encounter
--- OUTSIDE RECORDS SUMMARY | 2024-12-02 18:01 | XMS_ITS | Encounter Summary ---
Author Organization [facility] Address [address] [place] [address] Phone Care Team Providers Care Electrician Substation Supervisor Name Role Phone Britany Brito MD Primary Care Provider Encounter Details Date Type Department Care Team (Late st Contact Info) Description 07/08/2013 Documentation [facility] [place] [address] [place], [place] [phone] Family Medicine, Physician [address] [place], [place] [address] Social History Tobacco Use Types Packs/Day Years [...] on filedocumented in this encounter Care Teams Electrician Substation Supervisor Relationship Specialty Start Date End Date Britany Brito MD [address] [place] [address] [place] [address] PCP - General 04/13/17 02/21/23 documented as of this encounter
--- OUTSIDE RECORDS SUMMARY | 2024-12-02 18:01 | XMS_ITS | Encounter Summary ---
Author Organization [facility] Address [address] [place] [address] Phone Care Team Providers Care User Acceptance Tester Name Role Phone Britany Brito MD Primary Care Provider Encounter Details Date Type Department Care Team (Late st Contact Info) Description 08/25/2011 Documentation [facility] [place] Family Medicine [address] [place], [place] [phone] Family Medicine, Physician [address] [place], [place] 852571 Social History Tobacco Use Types Packs/Day Years [...] on filedocumented in this encounter Care Teams User Acceptance Tester Relationship Specialty Start Date End Date Britany Brito MD [address] [place] [address] [place] [address] PCP - General 04/13/17 02/21/23 documented as of this encounter
--- OUTSIDE RECORDS SUMMARY | 2024-12-02 18:01 | XMS_ITS | Encounter Summary ---
Author Organization [facility] Address [address] [place] [address] Phone Care Team Providers Care Long Line Teamster Name Role Phone Britany Brito MD Primary Care Provider [phone] Encounter Details Date Type Department Care Team (Late st Contact Info) Description 03/02/2015 Documentation [facility] [place] [address] [place], [place] [phone] Family Medicine, Physician [address] [place] [address] Social History Tobacco Use Types Packs/Day Years Used Date Smoking Tobacco: Some Days Comments:Current some day sm oker Comments Unknown Sex and Gender Information Value Date Recorded Sex Assigned at Not on file Legal Sex Female 4:45 PM EDT Gender Identity Not on file Sexual Orientation Not on file documented as of this encounter Plan of Treatment Not on file documented as of this encounter Visit Diagnoses Not on filedocumented in this encounter Care Teams Long Line Teamster Relationship Specialty Start Date End Date Britany Brito MD [address] [place] [address] [place] [address] PCP - General 04/13/17 02/21/23 documented as of this encounter
--- OUTSIDE RECORDS SUMMARY | 2024-12-02 18:01 | XMS_ITS | Encounter Summary ---
Author Organization [facility] Address [address] [place] [address] Phone Care Team Providers Care Automated Logistics Specialist Name Role Phone Britany Brito MD Primary Care Provider Encounter Details Date Type Department Care Team (Late st Contact Info) Description 02/25/2014 Documentation [facility] [place] [address] [place], [place] [phone] Family Medicine, Physician [address] [place], [place] 518561 Social History Tobacco Use Types Packs/Day Years [...] on filedocumented in this encounter Care Teams Automated Logistics Specialist Relationship Specialty Start Date End Date Britany Brito MD [address] [place] [address] [place] [address] PCP - General 04/13/17 02/21/23 documented as of this encounter
--- OUTSIDE RECORDS SUMMARY | 2024-12-02 18:01 | XMS_ITS | Encounter Summary ---
Author Organization [facility] Address [address] [place] [address] Phone Care Team Providers Care Greenbelt Name Role Phone Britany Brito MD Primary Care Provider [phone] Encounter Details Date Type Department Care Team (Late st Contact Info) Description 07/30/2013 Documentation [facility] [place] Family Medicine [address] [place], [place] [phone] Family Medicine, Physician [address] [place], [place] 432591 Social History Tobacco Use Types Packs/Day Years [...] on filedocumented in this encounter Care Teams Greenbelt Relationship Specialty Start Date End Date Britany Brito MD [address] [place] [address] [place] [address] PCP - General 04/13/17 02/21/23 documented as of this encounter
--- OUTSIDE RECORDS SUMMARY | 2024-12-02 18:01 | XMS_ITS | Encounter Summary ---
Author Organization [facility] Address [address] [place] [address] Phone Care Team Providers Care Kennel Operator Name Role Phone Britany Brito MD Primary Care Provider [phone] Encounter Details Date Type Department Care Team (Late st Contact Info) Description 06/22/2014 Documentation [facility] Family Medicine [address] [place], [place] [phone] Family Medicine, Physician [address] [place] [address] Social History Tobacco Use Types Packs/Day Years [...] on filedocumented in this encounter Care Teams Kennel Operator Relationship Specialty Start Date End Date Britany Brito MD [address] [place] [address] [place] [address] PCP - General 04/13/17 02/21/23 documented as of this encounter
--- OUTSIDE RECORDS SUMMARY | 2024-12-02 18:01 | XMS_ITS | Encounter Summary ---
Author Organization [facility] Address [address] [place] [address] Phone Care Team Providers Care Brick Extruder Operator Name Role Phone Britany Brito MD Primary Care Provider Encounter Details Date Type Department Care Team (Late st Contact Info) Description 02/25/[address] [facility] [place] Family Medicine [address] [place], [place] [phone] Family Medicine, Physician [address] [place], [place] 449931 Social History Tobacco Use Types Packs/Day Years [...] on filedocumented in this encounter Care Teams Brick Extruder Operator Relationship Specialty Start Date End Date Britany Brito MD [address] [place] [address] [place] [address] PCP - General 04/13/17 02/21/23 documented as of this encounter
--- OUTSIDE RECORDS SUMMARY | 2024-12-02 18:01 | XMS_ITS | Encounter Summary ---
Author Organization [facility] Address [address] [place] [address] Phone Care Team Providers Care Control Integration Engineer Name Role Phone Britany Brito MD Primary Care Provider [phone] Encounter Details Date Type Department Care Team (Late st Contact Info) Description 06/22/[address] [facility] [place] Family Medicine [address] [place], [place] [phone] Family Medicine, Physician [address] [place] [address] Social History Tobacco Use Types Packs/Day Years [...] on filedocumented in this encounter Care Teams Control Integration Engineer Relationship Specialty Start Date End Date Britany Brito MD [address] [place] [address] [place] [address] PCP - General 04/13/17 02/21/23 documented as of this encounter
--- OUTSIDE RECORDS SUMMARY | 2024-12-02 18:01 | XMS_ITS | Encounter Summary ---
Author Organization [facility] Address [address] [place] [address] Phone Care Team Providers Care Plugman Name Role Phone Britany Brito MD Primary Care Provider [phone] Encounter Details Date Type Department Care Team (Late st Contact Info) Description 05/29/2011 Documentation [facility] [place] Family Medicine [address] [place], [place] [phone] Family Medicine, Physician [address] [place], [place] [address]67861 Social History Tobacco Use Types Packs/Day Years [...] on filedocumented in this encounter Care Teams Plugman Relationship Specialty Start Date End Date Britany Brito MD [address] [place] [address] [place] [address] PCP - General 04/13/17 02/21/23 documented as of this encounter
--- OUTSIDE RECORDS SUMMARY | 2024-12-02 18:01 | XMS_ITS | Encounter Summary ---
Author Organization [facility] Address [address] [place] [address] Phone Care Team Providers Care Buttermilk Drier Operator Name Role Phone Britany Brito MD Primary Care Provider Encounter Details Date Type Department Care Team (Late st Contact Info) Description 03/02/2015 Documentation [facility] [place] Family Medicine [address] [place], [place] [phone] Family Medicine, Physician [address] [place] [address] Social History Tobacco Use Types Packs/Day Years [...] on filedocumented in this encounter Care Teams Buttermilk Drier Operator Relationship Specialty Start Date End Date Britany Brito MD [address] [place] [address] [place] [address] PCP - General 04/13/17 02/21/23 documented as of this encounter
--- OUTSIDE RECORDS SUMMARY | 2024-12-02 18:01 | XMS_ITS | Encounter Summary ---
Author Organization [facility] Address [address] [place] [address] Phone Care Team Providers Care Linux Systems Analyst Name Role Phone Britany Brito MD Primary Care Provider Encounter Details Date Type Department Care Team (Late st Contact Info) Description 01/23/2013 Documentation [facility] [place] Medicine [address] [place], [place] [phone] Family Medicine, Physician [address] [place], [place] 926721 Social History Tobacco Use Types Packs/Day Years [...] on filedocumented in this encounter Care Teams Linux Systems Analyst Relationship Specialty Start Date End Date Britany Brito MD [address] [place] [address] [place] [address] PCP - General 04/13/17 02/21/23 documented as of this encounter
--- OUTSIDE RECORDS SUMMARY | 2024-12-02 18:01 | XMS_ITS | Encounter Summary ---
Author Organization [facility] Address [address] [place] [address] Phone Care Team Providers Care Leather Novelty Parts Cutter Name Role Phone Britany Brito MD Primary Care Provider Encounter Details Date Type Department Care Team (Late st Contact Info) Description 03/27/2012 Documentation [facility] [place] [facility] [place] [address] [place], [place] [phone] Family Medicine, Physician [address] [place], [place] [address]2741 Social History Tobacco Use Types Packs/Day Years [...] on filedocumented in this encounter Care Teams Leather Novelty Parts Cutter Relationship Specialty Start Date End Date Britany Brito MD [address] [place] [address] [place] [address] PCP - General 04/13/17 02/21/23 documented as of this encounter
--- OUTSIDE RECORDS SUMMARY | 2024-12-02 18:01 | XMS_ITS | Encounter Summary ---
Author Organization [facility] Address [address] [place] [address] Phone Care Team Providers Care Electric Power Machine Operator Name Role Phone Britany Brito MD Primary Care Provider [phone] Encounter Details Date Type Department Care Team (Late st Contact Info) Description 04/19/2017 Conversion Encounter [facility] [address] [place] [address] Social History Tobacco Use Types Packs/Day Years [...] on filedocumented in this encounter Care Teams Electric Power Machine Operator Relationship Specialty Start Date End Date Britany Brito MD [address] [place] [address] PCP - General 04/13/17 02/21/23 documented as of this encounter
--- OUTSIDE RECORDS SUMMARY | 2024-12-02 18:01 | XMS_ITS | Encounter Summary ---
Author Organization [facility] Address [address] [place] [address] Phone Care Team Providers Care Rail Gang Supervisor Name Role Phone Britany Brito MD Primary Care Provider [phone] Encounter Details Date Type Department Care Team (Late st Contact Info) Description 01/23/2013 Documentation [facility] [place] [address] [place], [place] [phone] Family Medicine, Physician [address] [place], [place] 480641 Social History Tobacco Use Types Packs/Day Years [...] on filedocumented in this encounter Care Teams Rail Gang Supervisor Relationship Specialty Start Date End Date Britany Brito MD [address] [place] [address] [place] [address] PCP - General 04/13/17 02/21/23 documented as of this encounter
--- OUTSIDE RECORDS SUMMARY | 2024-12-02 18:01 | XMS_ITS | Encounter Summary ---
Author Organization [facility] Address [address] [place] [address] Phone Care Team Providers Care Zookeeper Name Role Phone Britany Brito MD Primary Care Provider Encounter Details Date Type Department Care Team (Late st Contact Info) Description 02/25/2014 Documentation [facility] [place] Family Medicine [address] [place], [place] [phone] Family Medicine, Physician [address] [place], [place] 840591 Social History Tobacco Use Types Packs/Day Years [...] on filedocumented in this encounter Care Teams Zookeeper Relationship Specialty Start Date End Date Britany Brito MD [address] [place] [address] [place] [address] PCP - General 04/13/17 02/21/23 documented as of this encounter
--- OUTSIDE RECORDS SUMMARY | 2024-12-02 18:01 | XMS_ITS | Clinical Summary ---
Author Organization [facility] Address [address] [place] [address] Phone Care Team Providers Care Animation Producer Name Role Phone Unavailable Primary Care Provider Unavailabl e Immunizations Immunization Administration Dates Next Due DTP 07/30/1995, 4,1994,04/13 DTaP 5 04/22/1999 H1N1 07/28/2009 HPV, Quadrivalent 10/18/2007,06/20/2007,04/17/20 07 Hep A, Adult 02/24/2014 Hep B, ped/adol 1994,1994,1994 Hib (PRP-T) 05/03/1995, 4,1994,04/13 IPV 04/22/1999, 5,1994,04/13 Influenza Split 07/01/2010 Influenza, injectable, quadr ivalent, preservative free 06/20/2014,07/29/2013 Influenza, injectable, trivalent 08/30/2009,07/04 Influenza, intranasal, trivalent 06/26/2012,05/05 MMR 01/05/1998,05/03/1995 Meningococcal Conj (Menactra) MCV4P 04/17/2007 Tdap 02/14/2006 Varicella 04/17/2007,02/13/1996 Family History Relation Name Status Comments Brother Alive Brother: Alive and well Father Father: colitis Maternal Grandfather Alive Materna l uncle: *Sudden /AL under 55 Mother Alive Mother: Obesity Other Family history of Hypertension, Family history of Diabetes mellitus Sister Alive Sister: Alive a nd well Social History Tobacco Use Types Packs/Day Years Used Date Smoking Tobacco: Some Days Comments:Current some day sm oker Comments Unknown Sex and Gender Information Value Date Recorded Sex Assigned at Not on file Legal Sex Female 4:45 PM EDT Gender Identity Not on file Sexual Orientation Not on file Last Filed Vital Signs Vital Sign Reading Time Taken Comments Blood Pressure 122/69 02/24/2014 12:00 AM EDT Pulse 82 02/24/2014 12:00 AM EDT Temperature 37.5 ??C (99.5 ??F) 07/07/2013 12:[address] Respiratory Rate - - Oxygen Saturation - - Inhaled Oxygen Concentration - - Weight 54.3 kg (119 lb 9.6 oz) 02/24/2014 12:00 AM EDT Height 171.5 cm (5' 7.5 ) 02/24/2014 12:00 AM ED T Body Mass Index 18.46 02/24/2014 12:00 AM EDT Plan of Treatment Health Maintenance Due Date Last Done Comments DTaP,Tdap,and Td Vaccines (7 - Td or Tdap) 02/15/2016 02/14/2006, 04/22/1999, 07/30/1995, Additional history exists Influenza Vaccines (#1) 2024 06/20/20 14, 07/29/2013, 06/26/2012, Additional history exists COVID-19 Vaccine (2023- season) 2024 Hepatitis B Vaccines Completed 1994, 1994, 1994 HIB Vaccines Completed 05/03/1995, 08/03, 1994, Additional history exists MMR Vaccines Completed 01/05/1998, 05/03/1995 IPV Vaccines Completed 04/22/1999, 07/05, 1994, Additional history exists Meningococcal Vaccine Aged Out 04/17/2007 No parth na eligible based on patient's age to complete this topic Varicella Vaccines Completed 04/17/2007, 02/13/1996 HPV Vaccines Completed 10/18/2007, 06/03, 04/17/2007 Hepatitis A Vaccines Aged Out 02/24/2014 No long er eligible based on patient's age to complete this topic Men B Vaccine Aged Out No longer elig ible based on patient's age to complete this topic Pneumococcal Vaccine Aged Out No long er eligible based on patient's age to complete this topic Procedures * Due to [facility] law, this organization might not be sharing sensitive test results. Procedure Name Priority Date/Time Associated Diagnosis Comments CHLAMYDIA AND GONORRHEA, AMPLIFIED Routine 02/25/2014 2:32 PM EDT from Last 3 Months or Most Recently Relevant to Health Maintenance Results * Due to [facility] law, this organization might not be sharing sensitive test results. * Chlamydia and Gonorrhoea, Amplified (02/25/2014 2:32 PM EDT) [facility] URINE GC AMP PROBE NEGATIVE [facility] Comment: NO NEISSERIA GONORRHOEAE RNA DETECTED IN THIS PATIENT'S SAMPLE. (REFERENCE RANGE/NORMAL VALUE: NOT DETECTED) NOTE: This test uses mold carpenter-mediated amplification method to detect rRNA from C.Trachomatis and N.Gonorrhoeae. A negative result does not preclude infection. In the case of a negative urine result, testing of an endocervical(female) or urethral(male) specimen is recommended if there is high clinical suspicion of infection. The performance characteristics of this test have not been evaluated in children. The Aptima Combo2 assay is not intended for the evaluation of suspected sexual abuse or for other medico-legal indications. The ordering provider should assess if the patient had consensual sex without risk of sexual abuse. Consult the [facility] if needed. Contact phone number . Therapeutic failure or success cannot be determined with the Aptima Combo2 assay since nucleic acid may persist following appropriate antimicrobial therapy. The Centers for Disease Control and Prevention (CDC) recommends confirmatory retesting using culture or a different nucleic acid amplification test when positive results occur, if indicated. Testing performed or reported by [facility], a Service of [facility], [address] [place] [address] True Díaz, Dairy Scientist URINE CHLAMYDIA AMP PROBE NEGATIVE [facility] Comment: NO CHLAMYDIA TRACHOMATIS RNA DETECTED IN THIS PATIENT'S SAMPLE. (REFERENCE RANGE/NORMAL VALUE: NOT DETECTED) 02/25/2014 2:32 PM EDT [facility] - 02/25/2014 2:32 PM EDT URINE CHLAMYDIA GC AMP PROBE us Britany Brito MD LAB MICROBIOLOGY - GENERAL ORDERABLES Final Result [facility] [address] [place] [address], [place] from Last 3 Months or Most Recently Relevant to Health Maintenance
--- OUTSIDE RECORDS SUMMARY | 2024-12-02 18:01 | XMS_ITS | Encounter Summary ---
Author Organization [facility] Address [address] [place] [address] Phone Care Team Providers Care Production Material Handler Name Role Phone Britany Brito MD Primary Care Provider Encounter Details Date Type Department Care Team (Late st Contact Info) Description 07/30/2013 Documentation [facility] [place] [address] [place], [place] [phone] Family Medicine, Physician [address] [place], [place] 055431 Social History Tobacco Use Types Packs/Day Years [...] on filedocumented in this encounter Care Teams Production Material Handler Relationship Specialty Start Date End Date Britany Brito MD [address] [place] [address] [place] [address] PCP - General 04/13/17 02/21/23 documented as of this encounter
--- OUTSIDE RECORDS SUMMARY | 2024-12-02 18:01 | XMS_ITS | Encounter Summary ---
Author Organization [facility] Address [address] [place] [address] Phone Care Team Providers Care Principal Gifts Officer Name Role Phone Britany Brito MD Primary Care Provider Encounter Details Date Type Department Care Team (Late st Contact Info) Description 02/23/2015 Documentation [facility] [place] Family Medicine [address] [place], [place] [phone] Family Medicine, Physician [address] [place] [address] Social History Tobacco Use Types Packs/Day Years [...] on filedocumented in this encounter Care Teams Principal Gifts Officer Relationship Specialty Start Date End Date Britany Brito MD [address] [place] [address] [place] [address] PCP - General 04/13/17 02/21/23 documented as of this encounter
--- OUTSIDE RECORDS SUMMARY | 2024-12-02 18:01 | XMS_ITS | Encounter Summary ---
Author Organization [facility] Address [address] [place] [address] Phone Care Team Providers Care Human Resources Clerk Name Role Phone Britany Brito MD Primary Care Provider Encounter Details Date Type Department Care Team (Late st Contact Info) Description 05/29/2011 Documentation [facility] [place] [address] [place], [place] [phone] Family Medicine, Physician [address] [place], [place] 154401 Social History Tobacco Use Types Packs/Day Years [...] on filedocumented in this encounter Care Teams Human Resources Clerk Relationship Specialty Start Date End Date Britany Brito MD [address] [place] [address] [place] [address] PCP - General 04/13/17 02/21/23 documented as of this encounter
--- OUTSIDE RECORDS SUMMARY | 2024-12-02 18:01 | XMS_ITS | Encounter Summary ---
Author Organization [facility] Address [address] [place] [address] Phone Care Team Providers Care Clin Nurse Name Role Phone Britany Brito MD Primary Care Provider Encounter Details Date Type Department Care Team (Late st Contact Info) Description 10/26/2011 Documentation [facility] [place] [address] [place], [place] [phone] Family Medicine, Physician [address] [place], [place] 626631 Social History Tobacco Use Types Packs/Day Years [...] on filedocumented in this encounter Care Teams Clin Nurse Relationship Specialty Start Date End Date Britany Brito MD [address] [place] [address] [place] [address] PCP - General 04/13/17 02/21/23 documented as of this encounter
--- OUTSIDE RECORDS SUMMARY | 2024-12-02 18:01 | XMS_ITS | Encounter Summary ---
Author Organization [facility] Address [address] [place] [address] Phone Care Team Providers Care Director Of Community Services Name Role Phone Britany Brito MD Primary Care Provider Encounter Details Date Type Department Care Team (Late st Contact Info) Description 10/26/2011 Documentation [facility] [place] Family Medicine [address] [place], [place] [phone] Family Medicine, Physician [address] [place], [place] 894921 Social History Tobacco Use Types Packs/Day Years [...] on filedocumented in this encounter Care Teams Director Of Community Services Relationship Specialty Start Date End Date Britany Brito MD [address] [place] [address] [place] [address] PCP - General 04/13/17 02/21/23 documented as of this encounter
--- OUTSIDE RECORDS SUMMARY | 2024-12-02 18:01 | XMS_ITS | Encounter Summary ---
Author Organization [facility] Address [address] [place] [address] Phone Care Team Providers Care Kiln Car Repairer Name Role Phone Britany Brito MD Primary Care Provider [phone] Encounter Details Date Type Department Care Team (Late st Contact Info) Description 07/10/2012 Documentation [facility] [place] [address] [place], [place] [phone] Family Medicine, Physician [address] [place], [place] 567751 Social History Tobacco Use Types Packs/Day Years [...] on filedocumented in this encounter Care Teams Kiln Car Repairer Relationship Specialty Start Date End Date Britany Brito MD [address] [place] [address] [place] [address] PCP - General 04/13/17 02/21/23 documented as of this encounter
--- OUTSIDE RECORDS SUMMARY | 2024-12-02 18:01 | XMS_ITS | Encounter Summary ---
Author Organization [facility] Address [address] [place] [address] Phone Care Team Providers Care Clinic Nurse Name Role Phone Britany Brito MD Primary Care Provider Encounter Details Date Type Department Care Team (Late st Contact Info) Description 07/05/2012 Documentation [facility] [place] Family Medicine [address] [place], [place] [phone] Family Medicine, Physician [address] [place], [place] 672051 Social History Tobacco Use Types Packs/Day Years [...] on filedocumented in this encounter Care Teams Clinic Nurse Relationship Specialty Start Date End Date Britany Brito MD [address] [place] [address] [place] [address] PCP - General 04/13/17 02/21/23 documented as of this encounter
--- OUTSIDE RECORDS SUMMARY | 2024-12-02 18:01 | XMS_ITS | Encounter Summary ---
Author Organization [facility] Address [address] [place] [address] Phone Care Team Providers Care Shell Worker Name Role Phone Britany Brito MD Primary Care Provider Encounter Details Date Type Department Care Team (Late st Contact Info) Description 07/04/2010 Documentation [facility] [place] [address] [place], [place] [phone] Family Medicine, Physician [address] [place], [place] 329321 Social History Tobacco Use Types Packs/Day Years [...] on filedocumented in this encounter Care Teams Shell Worker Relationship Specialty Start Date End Date Britany Brito MD [address] [place] [address] [place] [address] PCP - General 04/13/17 02/21/23 documented as of this encounter
--- OUTSIDE RECORDS SUMMARY | 2024-12-02 18:01 | XMS_ITS | Encounter Summary ---
Author Organization [facility] Address [address] [place] [address] Phone Care Team Providers Care Legal Transcriptionist Name Role Phone Britany Brito MD Primary Care Provider Encounter Details Date Type Department Care Team (Late st Contact Info) Description 06/27/2012 Documentation [facility] [place] [address] [place], [place] [phone] Family Medicine, Physician [address] [place], [place] 674911 Social History Tobacco Use Types Packs/Day Years [...] on filedocumented in this encounter Care Teams Legal Transcriptionist Relationship Specialty Start Date End Date Britany Brito MD [address] [place] [address] [place] [address] PCP - General 04/13/17 02/21/23 documented as of this encounter
== END 2024-12-02 16:18 | disposition home or self-care (01) ==
LOC: HO.HMCC 15:13
PROVIDERS: PCP Nurse Practitioner Family; Visit Provider Nurse Practitioner Family
DX: Z00.00 Encounter for general adult medical examination without abnormal findings (principal); Z86.19 Personal history of other infectious and parasitic diseases

== ENCOUNTER → 2024-12-02 15:10 | Outpatient (BNVA) | payer BC, SELFPAY | PROVIDERS: PCP Nurse Practitioner Family; Visit Provider Nurse Practitioner Family | DX: Z00.00 Encounter for general adult medical examination without abnormal findings (principal); Z86.19 Personal history of other infectious and parasitic diseases | CPT/HCPCS: 96127 ==

== ENCOUNTER 2025-01-14 08:28 | Outpatient (REF) | payer BC, SELFPAY ==
--- OUTSIDE RECORDS SUMMARY | 2025-01-14 08:45 | XMS_ITS | Encounter Summary ---
Author Organization [facility] Address [address] [place] [address] Phone Care Team Providers Care Intermediate Teacher Name Role Phone Britany Brito MD Primary Care Provider Encounter Details Date Type Department Care Team (Late st Contact Info) Description 02/25/2014 Documentation [facility] [place] Family Medicine [address] [place], [place] [phone] Family Medicine, Physician [address] [place], [place] 421241 Social History Tobacco Use Types Packs/Day Years [...] on filedocumented in this encounter Care Teams Intermediate Teacher Relationship Specialty Start Date End Date Britany Brito MD [address] [place] [address] [place] [address] PCP - General 04/13/17 02/21/23 documented as of this encounter
--- OUTSIDE RECORDS SUMMARY | 2025-01-14 08:45 | XMS_ITS | Encounter Summary ---
Author Organization [facility] Address [address] [place] [address] Phone Care Team Providers Care Histotechnician Name Role Phone Britany Brito MD Primary Care Provider Encounter Details Date Type Department Care Team (Late st Contact Info) Description 04/19/2017 Conversion Encounter [facility] [address] [place] [address] Social History Tobacco Use Types Packs/Day Years [...] on filedocumented in this encounter Care Teams Histotechnician Relationship Specialty Start Date End Date Britany Brito MD [address] [place] [address] PCP - General 04/13/17 02/21/23 documented as of this encounter
--- OUTSIDE RECORDS SUMMARY | 2025-01-14 08:45 | XMS_ITS | Encounter Summary ---
Author Organization [facility] Address [address] [place] [address] Phone Care Team Providers Care Freelance Patternmaker Name Role Phone Britany Brito MD Primary Care Provider [phone] Encounter Details Date Type Department Care Team (Late st Contact Info) Description 08/25/2011 Documentation [facility] [place] [address] [place], [place] [phone] Family Medicine, Physician [address] [place], [place] 759741 Social History Tobacco Use Types Packs/Day Years [...] on filedocumented in this encounter Care Teams Freelance Patternmaker Relationship Specialty Start Date End Date Britany Brito MD [address] [place] [address] [place] [address] PCP - General 04/13/17 02/21/23 documented as of this encounter
--- OUTSIDE RECORDS SUMMARY | 2025-01-14 08:45 | XMS_ITS | Encounter Summary ---
Author Organization [facility] Address [address] [place] [address] Phone Care Team Providers Care Auto Fleet Maintenance Manager Name Role Phone Britany Brito MD Primary Care Provider Encounter Details Date Type Department Care Team (Late st Contact Info) Description 02/25/2014 Documentation [facility] [place] [address] [place], [place] [phone] Family Medicine, Physician [address] [place], [place] 078351 Social History Tobacco Use Types Packs/Day Years [...] on filedocumented in this encounter Care Teams Auto Fleet Maintenance Manager Relationship Specialty Start Date End Date Britany Brito MD [address] [place] [address] [place] [address] PCP - General 04/13/17 02/21/23 documented as of this encounter
--- OUTSIDE RECORDS SUMMARY | 2025-01-14 08:45 | XMS_ITS | Encounter Summary ---
Author Organization [facility] Address [address] [place] [address] Phone Care Team Providers Care Juice Packaging Machines Setter Name Role Phone Britany Brito MD Primary Care Provider Encounter Details Date Type Department Care Team (Late st Contact Info) Description 07/05/2012 Documentation [facility] [place] Family Medicine [address] [place], [place] [phone] Family Medicine, Physician [address] [place], [place] 578531 Social History Tobacco Use Types Packs/Day Years [...] on filedocumented in this encounter Care Teams Juice Packaging Machines Setter Relationship Specialty Start Date End Date Britany Brito MD [address] [place] [address] [place] [address] PCP - General 04/13/17 02/21/23 documented as of this encounter
--- OUTSIDE RECORDS SUMMARY | 2025-01-14 08:45 | XMS_ITS | Encounter Summary ---
Author Organization [facility] Address [address] [place] [address] Phone Care Team Providers Care Asset Protection Detective Name Role Phone Britany Brito MD Primary Care Provider Encounter Details Date Type Department Care Team (Late st Contact Info) Description 07/04/2010 Documentation [facility] [place] Family Medicine [address] [place], [place] [phone] Family Medicine, Physician [address] [place], [place] 769511 Social History Tobacco Use Types Packs/Day Years [...] on filedocumented in this encounter Care Teams Asset Protection Detective Relationship Specialty Start Date End Date Britany Brito MD [address] [place] [address] [place] [address] PCP - General 04/13/17 02/21/23 documented as of this encounter
--- OUTSIDE RECORDS SUMMARY | 2025-01-14 08:45 | XMS_ITS | Encounter Summary ---
Author Organization [facility] Address [address] [place] [address] Phone Care Team Providers Care Water Pumping Station Engineer Name Role Phone Britany Brito MD Primary Care Provider Encounter Details Date Type Department Care Team (Late st Contact Info) Description 05/29/2011 Documentation [facility] [place] [address] [place], [place] [phone] Family Medicine, Physician [address] [place], [place] 186561 Social History Tobacco Use Types Packs/Day Years [...] on filedocumented in this encounter Care Teams Water Pumping Station Engineer Relationship Specialty Start Date End Date Britany Brito MD [address] [place] [address] [place] [address] PCP - General 04/13/17 02/21/23 documented as of this encounter
--- OUTSIDE RECORDS SUMMARY | 2025-01-14 08:45 | XMS_ITS | Encounter Summary ---
Author Organization [facility] Address [address] [place] [address] Phone Care Team Providers Care Airframe Design Engineer Name Role Phone Britany Brito MD Primary Care Provider Encounter Details Date Type Department Care Team (Late st Contact Info) Description 06/22/2014 Documentation [facility] [place] Family Medicine [address] [place], [place] [phone] Family Medicine, Physician [address] [place] [address] Social History Tobacco Use Types Packs/Day Years [...] on filedocumented in this encounter Care Teams Airframe Design Engineer Relationship Specialty Start Date End Date Britany Brito MD [address] [place] [address] [place] [address] PCP - General 04/13/17 02/21/23 documented as of this encounter
--- OUTSIDE RECORDS SUMMARY | 2025-01-14 08:45 | XMS_ITS | Encounter Summary ---
Author Organization [facility] Address [address] [place] [address] Phone Care Team Providers Care Geophysical Engineer Name Role Phone Britany Brito MD Primary Care Provider Encounter Details Date Type Department Care Team (Late st Contact Info) Description 06/27/2012 Documentation [facility] [place] Family [place] [address] [place], [place] [phone] Family Medicine, Physician [address] [place], [place] 719661 Social History Tobacco Use Types Packs/Day Years [...] on filedocumented in this encounter Care Teams Geophysical Engineer Relationship Specialty Start Date End Date Britany Brito MD [address] [place] [address] [place] [address] PCP - General 04/13/17 02/21/23 documented as of this encounter
--- OUTSIDE RECORDS SUMMARY | 2025-01-14 08:45 | XMS_ITS | Encounter Summary ---
Author Organization [facility] Address [address] [place] [address] Phone Care Team Providers Care Export Freight Clerk Name Role Phone Britany Brito MD Primary Care Provider Encounter Details Date Type Department Care Team (Late st Contact Info) Description 10/26/2011 Documentation [facility] [place] [address] [place], [place] [phone] Family Medicine, Physician [address] [place], [place] 131741 Social History Tobacco Use Types Packs/Day Years [...] on filedocumented in this encounter Care Teams Export Freight Clerk Relationship Specialty Start Date End Date Britany Brito MD [address] [place] [address] [place] [address] PCP - General 04/13/17 02/21/23 documented as of this encounter
--- OUTSIDE RECORDS SUMMARY | 2025-01-14 08:45 | XMS_ITS | Encounter Summary ---
Author Organization [facility] Address [address] [place] [address] Phone Care Team Providers Care Cloth Weigher Name Role Phone Britany Brito MD Primary Care Provider Encounter Details Date Type Department Care Team (Late st Contact Info) Description 10/26/2011 Documentation [facility] [place] [address] [place], [place] [phone] Family Medicine, Physician [address] [place], [place] 238061 Social History Tobacco Use Types Packs/Day Years [...] on filedocumented in this encounter Care Teams Cloth Weigher Relationship Specialty Start Date End Date Britany Brito MD [address] [place] [address] [place] [address] PCP - General 04/13/17 02/21/23 documented as of this encounter
--- OUTSIDE RECORDS SUMMARY | 2025-01-14 08:45 | XMS_ITS | Encounter Summary ---
Author Organization [facility] Address [address] [place] [address] Phone Care Team Providers Care Cargo Bracer Name Role Phone Britany Brito MD Primary Care Provider Encounter Details Date Type Department Care Team (Late st Contact Info) Description 05/29/2011 Documentation [facility] [place] Family Medicine [address] [place], [place] [phone] Family Medicine, Physician [address] [place], [place] 176551 Social History Tobacco Use Types Packs/Day Years [...] on filedocumented in this encounter Care Teams Cargo Bracer Relationship Specialty Start Date End Date Britany Brito MD [address] [place] [address] [place] [address] PCP - General 04/13/17 02/21/23 documented as of this encounter
--- OUTSIDE RECORDS SUMMARY | 2025-01-14 08:45 | XMS_ITS | Encounter Summary ---
Author Organization [facility] Address [address] [place] [address] Phone Care Team Providers Care Spaghetti Press Helper Name Role Phone Britany Brito MD Primary Care Provider Encounter Details Date Type Department Care Team (Late st Contact Info) Description 01/23/2013 Documentation [facility] [place] Medicine [address] [place], [place] [phone] Family Medicine, Physician [address] [place], [place] 703871 Social History Tobacco Use Types Packs/Day Years [...] on filedocumented in this encounter Care Teams Spaghetti Press Helper Relationship Specialty Start Date End Date Britany Brito MD [address] [place] [address] [place] [address] PCP - General 04/13/17 02/21/23 documented as of this encounter
--- OUTSIDE RECORDS SUMMARY | 2025-01-14 08:45 | XMS_ITS | Encounter Summary ---
Author Organization [facility] Address [address] [place] [address] 8[address] Phone Care Team Providers Care Nylon Hot Wire Cutter Name Role Phone Britany Brito MD Primary Care Provider Encounter Details Date Type Department Care Team (Late st Contact Info) Description 01/23/2013 Documentation [facility] [place] [address] [place], [place] [phone] Family Medicine, Physician [address] [place], [place] 951881 Social History Tobacco Use Types Packs/Day Years [...] on filedocumented in this encounter Care Teams Nylon Hot Wire Cutter Relationship Specialty Start Date End Date Britany Brito MD [address] [place] [address] [place] [address] PCP - General 04/13/17 02/21/23 documented as of this encounter
--- OUTSIDE RECORDS SUMMARY | 2025-01-14 08:45 | XMS_ITS | Encounter Summary ---
Author Organization [facility] Address [address] [place] [address] Phone Care Team Providers Care Coke Inspector Name Role Phone Britany Brito MD Primary Care Provider Encounter Details Date Type Department Care Team (Late st Contact Info) Description 01/23/2013 Documentation [facility] [place] [address] [place], [place] [phone] Family Medicine, Physician [address] [place], [place] 028301 Social History Tobacco Use Types Packs/Day Years [...] on filedocumented in this encounter Care Teams Coke Inspector Relationship Specialty Start Date End Date Britany Brito MD [address] [place] [address] [place] [address] PCP - General 04/13/17 02/21/23 documented as of this encounter
--- OUTSIDE RECORDS SUMMARY | 2025-01-14 08:45 | XMS_ITS | Encounter Summary ---
Author Organization [facility] Address [address] [place] [address] Phone Care Team Providers Care Operations Research Manager Name Role Phone Britany Brito MD Primary Care Provider Encounter Details Date Type Department Care Team (Late st Contact Info) Description 03/27/2012 Documentation [facility] [place] [address] [place], [place] [phone] Family Medicine, Physician [address] [place], [place] 706731 Social History Tobacco Use Types Packs/Day Years [...] on filedocumented in this encounter Care Teams Operations Research Manager Relationship Specialty Start Date End Date Britany Brito MD [address] [place] [address] [place] [address] PCP - General 04/13/17 02/21/23 documented as of this encounter
--- OUTSIDE RECORDS SUMMARY | 2025-01-14 08:45 | XMS_ITS | Encounter Summary ---
Author Organization [facility] Address [address] [place] [address] Phone Care Team Providers Care Sports Team Marketing Intern Name Role Phone Britany Brito MD Primary Care Provider [phone] Encounter Details Date Type Department Care Team (Late st Contact Info) Description 03/02/2015 Documentation [facility] [place] [address] [place], [place] [phone] Family Medicine, Physician [address] [place] [address] Social History Tobacco Use Types Packs/Day Years [...] on filedocumented in this encounter Care Teams Sports Team Marketing Intern Relationship Specialty Start Date End Date Britany Brito MD [address] [place] [address] [place] [address] PCP - General 04/13/17 02/21/23 documented as of this encounter
--- OUTSIDE RECORDS SUMMARY | 2025-01-14 08:45 | XMS_ITS | Encounter Summary ---
Author Organization [facility] Address [address] [place] [address] Phone Care Team Providers Care Elevator Installer Apprentice Name Role Phone Britany Brito MD Primary Care Provider Encounter Details Date Type Department Care Team (Late st Contact Info) Description 07/10/2012 Documentation [facility] [place] [address] [place], [place] [phone] Family Medicine, Physician [address] [place], [place] 887531 Social History Tobacco Use Types Packs/Day Years [...] on filedocumented in this encounter Care Teams Elevator Installer Apprentice Relationship Specialty Start Date End Date Britany Brito MD [address] [place] [address] [place] [address] PCP - General 04/13/17 02/21/23 documented as of this encounter
--- OUTSIDE RECORDS SUMMARY | 2025-01-14 08:45 | XMS_ITS | Clinical Summary ---
Author Organization [facility] Address [address] [place] [address] Phone Care Team Providers Care Federal Mediator Name Role Phone Unavailable Primary Care Provider [...] Maternal Grandfather Alive Materna l uncle: *Sudden /IN under 55 Mother Alive Mother: Obesity Other [...] complete this topic Procedures * Due to [facility] law, this organization might not be sharing sensitive test results. Procedure Name Priority Date/Time Associated Diagnosis Comments CHLAMYDIA AND GONORRHEA, AMPLIFIED Routine 02/25/2014 2:32 PM EDT from Last 3 Months or Most Recently Relevant to Health Maintenance Results * Due to [facility] law, this organization might not be sharing sensitive test results. * Chlamydia and Gonorrhoea, Amplified (02/25/2014 2:32 PM EDT) [facility] URINE GC AMP PROBE NEGATIVE [facility] Comment: NO NEISSERIA GONORRHOEAE RNA DETECTED IN THIS PATIENT'S SAMPLE. (REFERENCE RANGE/NORMAL VALUE: NOT DETECTED) NOTE: This test uses chinchilla farmer-mediated amplification method to detect rRNA from C.Trachomatis [...] without risk of sexual abuse. Consult the [facility] if needed. Contact phone number . Therapeutic failure or success cannot be determined with the Aptima Combo2 assay since nucleic acid may persist following appropriate antimicrobial therapy. The Centers for Disease Control and Prevention (CDC) recommends confirmatory retesting using culture or a different nucleic acid amplification test when positive results occur, if indicated. Testing performed or reported by [facility], a Service of [facility], [address] [place] [address] True Díaz, Char Conveyor Tender Cellar URINE CHLAMYDIA AMP PROBE NEGATIVE [facility] Comment: NO CHLAMYDIA TRACHOMATIS RNA DETECTED IN THIS PATIENT'S SAMPLE. (REFERENCE RANGE/NORMAL VALUE: NOT DETECTED) 02/25/2014 2:32 PM EDT [facility] - 02/25/2014 2:32 PM EDT URINE CHLAMYDIA GC AMP PROBE us Britany Brito MD LAB MICROBIOLOGY - GENERAL ORDERABLES Final Result [facility] [address] [place] [address], [place] from Last 3 Months or Most Recently Relevant to Health Maintenance
--- OUTSIDE RECORDS SUMMARY | 2025-01-14 08:45 | XMS_ITS | Encounter Summary ---
Author Organization [facility] Address [address] [place] [address] Phone Care Team Providers Care Assurance Manager Name Role Phone Britany Brito MD Primary Care Provider Encounter Details Date Type Department Care Team (Late st Contact Info) Description 06/22/2014 Documentation [facility] [place] [address] [place], [place] [phone] Family Medicine, Physician [address] [place] [address] Social History Tobacco Use Types Packs/Day Years [...] on filedocumented in this encounter Care Teams Assurance Manager Relationship Specialty Start Date End Date Britany Brito MD [address] [place] [address] [place] [address] PCP - General 04/13/17 02/21/23 documented as of this encounter
--- OUTSIDE RECORDS SUMMARY | 2025-01-14 08:45 | XMS_ITS | Encounter Summary ---
Author Organization [facility] Address [address] [place] [address] Phone Care Team Providers Care Maple Syrup Maker Name Role Phone Britany Brito MD Primary Care Provider Encounter Details Date Type Department Care Team (Late st Contact Info) Description 02/25/2014 Documentation [facility] [place] Family Medicine [address] [place], [place] [phone] Family Medicine, Physician [address] [place], [place] 255451 Social History Tobacco Use Types Packs/Day Years [...] on filedocumented in this encounter Care Teams Maple Syrup Maker Relationship Specialty Start Date End Date Britany Brito MD [address] [place] [address] [place] [address] PCP - General 04/13/17 02/21/23 documented as of this encounter
--- OUTSIDE RECORDS SUMMARY | 2025-01-14 08:45 | XMS_ITS | Encounter Summary ---
Author Organization [facility] Address [address] [place] [address] Phone Care Team Providers Care Contract Management Specialist Name Role Phone Britany Brito MD Primary Care Provider Encounter Details Date Type Department Care Team (Late st Contact Info) Description 02/23/2015 Documentation [facility] [place] [address] [place], [place] [phone] Family Medicine, Physician [address] [place] [address] Social History Tobacco Use Types Packs/Day Years [...] on filedocumented in this encounter Care Teams Contract Management Specialist Relationship Specialty Start Date End Date Britany Brito MD [address] [place] [address] [place] [address] PCP - General 04/13/17 02/21/23 documented as of this encounter
--- OUTSIDE RECORDS SUMMARY | 2025-01-14 08:45 | XMS_ITS | Encounter Summary ---
Author Organization [facility] Address [address] [place] [address] 7[address] Phone Care Team Providers Care Valuation Consultant Name Role Phone Britany Brito MD Primary Care Provider Encounter Details Date Type Department Care Team (Late st Contact Info) Description 07/30/2013 Documentation [facility] [place] [address] [place], [place] [phone] Family Medicine, Physician [address] [place], [place] 565871 Social History Tobacco Use Types Packs/Day Years [...] on filedocumented in this encounter Care Teams Valuation Consultant Relationship Specialty Start Date End Date Britany Brito MD [address] [place] [address] [place] [address] PCP - General 04/13/17 02/21/23 documented as of this encounter
--- OUTSIDE RECORDS SUMMARY | 2025-01-14 08:45 | XMS_ITS | Encounter Summary ---
Author Organization [facility] Address [address] [place] [address] Phone Care Team Providers Care Agriculture Manager Name Role Phone Britany Brito MD Primary Care Provider Encounter Details Date Type Department Care Team (Late st Contact Info) Description 03/02/2015 Documentation [facility] [place] [address] [place], [place] [phone] Family Medicine, Physician [address] [place] [address] Social History Tobacco Use Types Packs/Day Years [...] on filedocumented in this encounter Care Teams Agriculture Manager Relationship Specialty Start Date End Date Britany Brito MD [address] [place] [address] [place] [address] PCP - General 04/13/17 02/21/23 documented as of this encounter
--- OUTSIDE RECORDS SUMMARY | 2025-01-14 08:46 | XMS_ITS | Encounter Summary ---
Author Organization [facility] Address [address] [place] [address] Phone Care Team Providers Care Green Building Materials Distributor Name Role Phone Britany Brito MD Primary Care Provider Encounter Details Date Type Department Care Team (Late st Contact Info) Description 07/08/2013 Documentation [facility] [place] [address] [place], [place] [phone] Family Medicine, Physician [address] [place], [place] 732271 Social History Tobacco Use Types Packs/Day Years [...] on filedocumented in this encounter Care Teams Green Building Materials Distributor Relationship Specialty Start Date End Date Britany Brito MD [address] [place] [address] [place] [address] PCP - General 04/13/17 02/21/23 documented as of this encounter
--- OUTSIDE RECORDS SUMMARY | 2025-01-14 08:46 | XMS_ITS | Encounter Summary ---
Author Organization [facility] Address [address] [place] [address] Phone Care Team Providers Care Counselor Aid Name Role Phone Britany Brito MD Primary Care Provider Encounter Details Date Type Department Care Team (Late st Contact Info) Description 07/30/2013 Documentation [facility] [place] [address] [place], [place] [phone] Family Medicine, Physician [address] [place], [place] 396291 Social History Tobacco Use Types Packs/Day Years [...] on filedocumented in this encounter Care Teams Counselor Aid Relationship Specialty Start Date End Date Britany Brito MD [address] [place] [address] [place] [address] PCP - General 04/13/17 02/21/23 documented as of this encounter
[2025-01-14 09:52] LABS: MANUAL DIFF FLAG NO
[2025-01-14 10:07] LABS: Basophils Percent Auto 0.4 % (0-2); Eosinophils Absolute Auto 0.2 X10*3/uL (0.0-0.4); Eosinophils Percent Auto 3.3 % (0-4); Hematocrit 40.9 % (37.0-47.0); Hemoglobin 12.9 g/dl (12.0-16.0); Imm Gran Abs Auto 0.04 X10*3/uL (0.00-0.03); Imm Gran Pct Auto 0.6 % (0.0-0.4); Lymphocytes Absolute Auto 1.6 X10*3/uL (1.2-4.9); Lymphocytes Percent Auto 23.7 % (20-40); Mean Corpuscular HGB Conc 31.5 g/dl (31.0-35.0); Mean Corpuscular Volume 85.6 fL (80.0-98.0); Monocytes Absolute Auto 0.7 X10*3/uL (0.1-1.2); Monocytes Percent Auto 9.8 % (2-11); Neutrophils Absolute Auto 4.2 x10*3/uL (2.0-8.3); Neutrophils Percent Auto 62.2 % (45-73); Platelet Count 262 X10*3/uL (160-400); Red Blood Count 4.78 X10*6/uL (4.20-5.50); Red Cell Distribution Width 13.3 % (11.0-16.0); White Blood Count 6.7 X10*3/uL (4.8-10.8)
[2025-01-14 10:37] LABS: Alanine Aminotransferase 14 U/L (0-31); Albumin Level 4.1 g/dL (3.5-5.0); Alkaline Phosphatase 64 U/L (39-117); Anion Gap 11 (12-20); Aspartate Amino Transferase 19 U/L (5-31); Bilirubin Total 0.9 mg/dL (0.0-1.0); Blood Urea Nitrogen 11 mg/dL (9-16); Calcium 8.8 mg/dL (8.4-10.2); Carbon Dioxide 27 mmol/L (22-29); Chloride 106 mmol/L (96-108); Cholesterol 137 mg/dL (<200); Estimated Glomerular Filt Rate > 60; Glucose Fasting 92 mg/dL (60-99); HDL Cholesterol 46 mg/dL (>40); LDL Cholesterol Calculated 78 mg/dL (<100); Potassium 3.7 mmol/L (3.3-5.1); Sodium 140 mmol/L (135-145); Total Protein 6.7 g/dL (6.5-8.0); Triglycerides 66 mg/dL (<150)
[2025-01-14 10:46] LABS: TSH reflex Free T4 1.51 uIU/mL (0.32-4.0)
[2025-01-14 11:03] LABS: Appearance Urine Clear; Color Urine Yellow; Glucose Urine UA Negative (Negative); Leukocyte Esterase Urine Negative (Negative); Nitrite Urine Negative (Negative); PH >= 9.0 (5.0-9.0); Specific Gravity - Urine 1.015 (1.005-1.025); Urine Blood Negative (Negative); Urine Ketones Negative (Negative); Urine Protein Negative (Neg-Trace)
== END 2025-01-14 08:29 | disposition home or self-care (01) ==
LOC: HO.HMGCLDS 08:28
PROVIDERS: PCP Nurse Practitioner Family; Visit Provider Nurse Practitioner Family
DX: Z00.00 Encounter for general adult medical examination without abnormal findings (principal); Z13.6 Encounter for screening for cardiovascular disorders
CPT/HCPCS: 36415; 80053; 80061; 81003; 84443; 85025

== ENCOUNTER 2025-06-24 14:40 | Outpatient (AMB) | payer BC, SELFPAY ==
--- NOTE | 2025-06-24 14:45 | MHC.OFFVIS ---
Vital Signs 06/24/25 14:46 BP 100/66 Intake Visit Reasons: IUD removal Gas Meter Installer: Gas Meter Installer Present (Kaur) Allergies Sulfa (Sulfonamide Antibiotics) (SULFA (SULFONAMIDE ANTIBIOTICS)) Allergy (Intermediate, Verified 06/24/25 14:45) HIVES HPI Comments Details: Patient is here today for a IUD removal, planning a future after her wedding this winter. [facility] Medical History History of anxiety Hx of acne Surgical History Hx of wisdom tooth extraction Family History Mother Hypertension Maternal Grandfather Dementia Substance use disorder Paternal Grandmother TIA (transient ischemic attack) Maternal Aunt Breast CA Maternal Uncle Substance use disorder Mental health disorder Brother Substance use disorder Mental health disorder Maternal Grandmother Substance use disorder Paternal Aunt Mental health disorder Social History Housing: House Alcohol intake: current Alcohol intake frequency: a few times a week Patient Tobacco Use Status: Never used Tobacco e-Cigarette/Vaping Use: Never Used Second Hand Smoke Exposure: No service: No Current occupational status: unemployed Sexual orientation: Straight/Heterosexual Cognitive needs: No Hearing needs: No Vision needs: No Female Reproductive History Menstrual Age of Menarche: 13 Review of Systems Const All systems reviewed & are unremarkable except as noted in HPI and below Physical Exam Vital Signs: Last Vital Signs BP 100/66 06/24/25 14:46 Const General: cooperative, healthy appearing and no acute distress Orientation/consciousness: patient oriented x3 GI Inspection: Yes normal to inspection Palpation (GI): Soft to palpation and Other GI palpation findings present (Nontender) Rectal Exam - Female: visual inspection normal General: Yes bladder normal to palpation External Female Exam: normal appearance of the urethra Speculum Exam - Vagina: normal appearance of the vagina, normal palpation and normal vaginal discharge Speculum Exam - Cervix: normal appearance of the cervix, normal palpation and Other cervical findings present (IUD strings at the os) Bimanual exam- vagina & uterus: normal bimanual exam, normal palpation, uterine size normal, bladder normal to palpation, normal palpation, uterine shape normal and non-tender Bimanual Exam- Adnexa, other: normal adnexae Neuro General: patient oriented x3 Office Procedures IUD Insert/Removal Details Details: The patient presents today for a IUD removal. ?She is planning a future . She was counseled regarding the removal of her IUD. She was consented for the procedure along with anticipatory guidance for the removal and the consents form was signed. She desires to proceed with the IUD removal. IUD Removal Procedure: The patient was placed in the dorsal lithotomy position. A speculum was inserted vaginally and the cervix and strings were visualized at the os. A ring forcep was utilized, and the patient was asked to give a deep cough while the strings were grasped and gently tugged at the same time, removing the IUD device intact. Minimal bleeding was observed. All of the equipment was removed. The patient tolerated the procedure well and left the office in good condition. IUD Removal Information: You may have light bleeding for several days, tapering off to a brown or pink color. Mild cramping after removal is common. If not allergic, you may take an over the counter mild analgesic for the discomfort, such as Tylenol or Advil (use dosing and frequency per the manufacturers recommendations). Call the office if you experience: fever (over 100.4), flu like symptoms, abdominal or pelvic pain, foul smelling discharge or heavy bleeding. If not planning for a future , another form of control is recommended. Use of condoms for prevention of STI's is also recommended, if indicated. This note is constructed using voice recognition software. ?While every effort has been made to ensure accuracy, home planning consultant salesperson errors may have been included. ? 80958-RCS Removal Procedure code (CPT) selection complete Assessment & Plan Assessment & Plan (1) Encounter for IUD removal: Code(s): Z30.432 - Encounter for removal of intrauterine contraceptive device Plan IUD removed successfully. Counseled regarding monitoring menstrual cycles with the use of timoteo., start vitamins for the benefit of folic acid for the prevention of neural tube defects. Rx sent in. Annual exam is scheduled September 2025. The patient expressed understanding and agreement with the plan of care. All of her questions and concerns were addressed to the best of my ability. This note is constructed using voice recognition software. While every effort has been made to ensure accuracy, home planning consultant salesperson errors may have been included. Medications: New PNV,calcium 60-yydg-ktuwn acid 27 mg iron- 1 mg ( Vitamins Plus Low Iron) 1 tab PO DAILY 90 tabs 4RF Coding Level of Care Code Procedure Only Diagnoses Encounter for IUD removal Z30.432 CPT Codes Details - CPT: 49860-JMR Removal ([id number])
[2025-06-24 14:46] VITALS: BP 100/66
--- OUTSIDE RECORDS SUMMARY | 2025-06-24 20:49 | XMS_ITS | Encounter Summary ---
Author Organization [facility] Address [address] [place] [address] Phone Care Team Providers Care Attendant [facility] Name Role Phone Britany Brito MD Primary Care Provider Encounter Details Date Type Department Care Team (Late st Contact Info) Description 07/10/2012 Documentation [facility] [place] [address] [place], [place] [phone] Family Medicine, Physician [address] [place], [place] 846441 Social History Tobacco Use Types Packs/Day Years [...] on filedocumented in this encounter Care Teams Attendant [facility] Relationship Specialty Start Date End Date Britany Brito MD [address] [place] [address] [place] [address] PCP - General 04/13/17 02/21/23 documented as of this encounter
--- OUTSIDE RECORDS SUMMARY | 2025-06-24 20:49 | XMS_ITS | Encounter Summary ---
Author Organization [facility] Address [address] [place] [address] Phone Care Team Providers Care Sales And Marketing Executive Name Role Phone Britany Brito MD Primary Care Provider Encounter Details Date Type Department Care Team (Late st Contact Info) Description 01/23/2013 Documentation [facility] [place] [address] [place], [place] [phone] Family Medicine, Physician [address] [place], [place] 085471 Social History Tobacco Use Types Packs/Day Years [...] on filedocumented in this encounter Care Teams Sales And Marketing Executive Relationship Specialty Start Date End Date Britany Brito MD [address] [place] [address] [place] [address] PCP - General 04/13/17 02/21/23 documented as of this encounter
--- OUTSIDE RECORDS SUMMARY | 2025-06-24 20:49 | XMS_ITS | Encounter Summary ---
Author Organization [facility] Address [address] [place] [address] Phone Care Team Providers Care Scouring Train Operator Chief Name Role Phone Britany Brito MD Primary Care Provider [phone] Encounter Details Date Type Department Care Team (Late st Contact Info) Description 03/02/2015 Documentation [facility] [place] [address] [place], [place] [phone] Family Medicine, Physician [address] [place] [address] Social History Tobacco Use Types Packs/Day Years [...] on filedocumented in this encounter Care Teams Scouring Train Operator Chief Relationship Specialty Start Date End Date Britany Brito MD [address] [place] [address] [place] [address] PCP - General 04/13/17 02/21/23 documented as of this encounter
--- OUTSIDE RECORDS SUMMARY | 2025-06-24 20:49 | XMS_ITS | Encounter Summary ---
Author Organization [facility] Address [address] [place] [address]68 Phone Care Team Providers Care Prize Fighter Name Role Phone Britany Brito MD Primary Care Provider Encounter Details Date Type Department Care Team (Late st Contact Info) Description 03/27/2012 Documentation [facility] [place] Family [place] [address] [place], [place] [phone] Family Medicine, Physician [address] [place], [place] 583871 Social History Tobacco Use Types Packs/Day Years [...] on filedocumented in this encounter Care Teams Prize Fighter Relationship Specialty Start Date End Date Britany Brito MD [address] [place] [address] [place] [address] PCP - General 04/13/17 02/21/23 documented as of this encounter
--- OUTSIDE RECORDS SUMMARY | 2025-06-24 20:49 | XMS_ITS | Encounter Summary ---
Author Organization [facility] Address [address] [place] [address] Phone Care Team Providers Care Online Merchandising Specialist Name Role Phone Britany Brito MD Primary Care Provider Encounter Details Date Type Department Care Team (Late st Contact Info) Description 02/25/[address] [facility] [place] Family Medicine [address] [place], [place] [phone] Family Medicine, Physician [address] [place], [place] 497901 Social History Tobacco Use Types Packs/Day Years [...] on filedocumented in this encounter Care Teams Online Merchandising Specialist Relationship Specialty Start Date End Date Britany Brito MD [address] [place] [address] [place] [address] PCP - General 04/13/17 02/21/23 documented as of this encounter
--- OUTSIDE RECORDS SUMMARY | 2025-06-24 20:49 | XMS_ITS | Encounter Summary ---
Author Organization [facility] Address [address] [place] [address] Phone Care Team Providers Care Director Education Name Role Phone Britany Brito MD Primary Care Provider Encounter Details Date Type Department Care Team (Late st Contact Info) Description 10/26/2011 Documentation [facility] [place] [address] [place], [place] [phone] Family Medicine, Physician [address] [place], [place] 411011 Social History Tobacco Use Types Packs/Day Years [...] filedocumented in this encounter Care Teams Director Education Relationship Specialty Start Date End Date Britany Brito MD [address] [place] [address] [place] [address] PCP - General 04/13/17 02/21/23 documented as of this encounter
--- OUTSIDE RECORDS SUMMARY | 2025-06-24 20:49 | XMS_ITS | Encounter Summary ---
Author Organization [facility] Address [address] [place] [address] 207[address] Phone Care Team Providers Care Tile Molder Hand Name Role Phone Britany Brito MD Primary Care Provider Encounter Details Date Type Department Care Team (Late st Contact Info) Description 06/27/2012 Documentation [facility] [place] [address] [place], [place] [phone] Family Medicine, Physician [address] [place], [place] 188401 Social History Tobacco Use Types Packs/Day Years [...] on filedocumented in this encounter Care Teams Tile Molder Hand Relationship Specialty Start Date End Date Britany Brito MD [address] [place] [address] [place] [address] PCP - General 04/13/17 02/21/23 documented as of this encounter
--- OUTSIDE RECORDS SUMMARY | 2025-06-24 20:49 | XMS_ITS | Clinical Summary ---
Author Organization [facility] Address [address] [place] [address] Phone Care Team Providers Care Trucking Supervisor Name Role Phone Unavailable Primary Care Provider [...] Maternal Grandfather Alive Materna l uncle: *Sudden /PR under 55 Mother Alive Mother: Obesity Other [...] 82 02/24/2014 12:00 AM EDT Temperature 37.5 C (99.5 F) 07/07/2013 12:00 AM EST Respiratory Rate - - Oxygen Saturation - [...] 07/30/1995, Additional history exists Influenza Vaccines (#1) 2025 06/20/20 14, 07/29/2013, 06/26/2012, Additional history exists COVID-19 Vaccine ( season) 2025 Hepatitis B Vaccines Completed 1994, 1994, 1994 [...] complete this topic Procedures * Due to [facility] law, this organization might not be sharing sensitive test results. Procedure Name Priority Date/Time Associated Diagnosis Comments CHLAMYDIA AND GONORRHEA, AMPLIFIED Routine 02/25/2014 2:32 PM EDT from Last 3 Months or Most Recently Relevant to Health Maintenance Results * Due to [facility] law, this organization might not be sharing sensitive test results. * Chlamydia and Gonorrhoea, Amplified (02/25/2014 2:32 PM EDT) [facility] URINE GC AMP PROBE NEGATIVE F [facility] Comment: NO NEISSERIA GONORRHOEAE RNA DETECTED IN THIS PATIENT'S SAMPLE. (REFERENCE RANGE/NORMAL VALUE: NOT DETECTED) NOTE: This test uses psychology fellow-mediated amplification method to detect rRNA from C.Trachomatis [...] without risk of sexual abuse. Consult the [facility] if needed. Contact phone number . Therapeutic failure or success cannot be determined with the Aptima Combo2 assay since nucleic acid may persist following appropriate antimicrobial therapy. The Centers for Disease Control and Prevention (CDC) recommends confirmatory retesting using culture or a different nucleic acid amplification test when positive results occur, if indicated. Testing performed or reported by [facility], a Service of [facility], [address] [place] [address] True Díaz, X Ray Equipment Servicer URINE CHLAMYDIA AMP PROBE NEGATIVE [facility] Comment: NO CHLAMYDIA TRACHOMATIS RNA DETECTED IN THIS PATIENT'S SAMPLE. (REFERENCE RANGE/NORMAL VALUE: NOT DETECTED) 02/25/2014 2:32 PM EDT [facility] - 02/25/2014 2:32 PM EDT URINE CHLAMYDIA GC AMP PROBE us Britany Brito MD LAB MICROBIOLOGY - GENERAL ORDERABLES Final Result [facility] [address] [place] [address], [place] from Last 3 Months or Most Recently Relevant to Health Maintenance
--- OUTSIDE RECORDS SUMMARY | 2025-06-24 20:49 | XMS_ITS | Encounter Summary ---
Author Organization [facility] Address [address] [place] [address] Phone Care Team Providers Care Core Machine Operator Name Role Phone Britany Brito MD Primary Care Provider Encounter Details Date Type Department Care Team (Late st Contact Info) Description 07/30/2013 Documentation [facility] [place] [address] [place], [place] [phone] Family Medicine, Physician [address] [place], [place] [address] Social History Tobacco Use Types Packs/Day Years [...] on filedocumented in this encounter Care Teams Core Machine Operator Relationship Specialty Start Date End Date Britany Brito MD [address] [place] [address] [place] [address] PCP - General 04/13/17 02/21/23 documented as of this encounter
--- OUTSIDE RECORDS SUMMARY | 2025-06-24 20:49 | XMS_ITS | Encounter Summary ---
Author Organization [facility] Address [address] [place] [address] Phone Care Team Providers Care Well Service Derrick Worker Name Role Phone Britany Brito MD Primary Care Provider Encounter Details Date Type Department Care Team (Late st Contact Info) Description 02/25/2014 Documentation [facility] [place] Medicine [address] [place], [place] [phone] Family Medicine, Physician [address] [place], [place] 711621 Social History Tobacco Use Types Packs/Day Years [...] on filedocumented in this encounter Care Teams Well Service Derrick Worker Relationship Specialty Start Date End Date Britany Brito MD [address] [place] [address] [place] [address] PCP - General 04/13/17 02/21/23 documented as of this encounter
--- OUTSIDE RECORDS SUMMARY | 2025-06-24 20:49 | XMS_ITS | Encounter Summary ---
Author Organization [facility] Address [address] [place] [address] Phone Care Team Providers Care Senior Accountant Analyst Name Role Phone Britany Brito MD Primary Care Provider Encounter Details Date Type Department Care Team (Late st Contact Info) Description 03/02/2015 Documentation [facility] [place] Family Medicine [address] [place], [place] [phone] Family Medicine, Physician [address] [place] [address] Social History Tobacco Use Types Packs/Day Years [...] on filedocumented in this encounter Care Teams Senior Accountant Analyst Relationship Specialty Start Date End Date Britany Brito MD [address] [place] [address] [place] [address] PCP - General 04/13/17 02/21/23 documented as of this encounter
--- OUTSIDE RECORDS SUMMARY | 2025-06-24 20:49 | XMS_ITS | Encounter Summary ---
Author Organization [facility] Address [address] [place] [address] Phone Care Team Providers Care Tourist Home Keeper Name Role Phone Britany Brito MD Primary Care Provider [phone] Encounter Details Date Type Department Care Team (Late st Contact Info) Description 07/08/2013 Documentation [facility] [place] [address] [place], [place] [phone] Family Medicine, Physician [address] [place], [place] 515761 Social History Tobacco Use Types Packs/Day Years [...] on filedocumented in this encounter Care Teams Tourist Home Keeper Relationship Specialty Start Date End Date Britany Brito MD [address] [place] [address] [place] [address] PCP - General 04/13/17 02/21/23 documented as of this encounter
--- OUTSIDE RECORDS SUMMARY | 2025-06-24 20:49 | XMS_ITS | Encounter Summary ---
Author Organization [facility] Address [address] [place] [address] Phone Care Team Providers Care First Aid Teacher Name Role Phone Britany Brito MD Primary Care Provider [phone] Encounter Details Date Type Department Care Team (Late st Contact Info) Description 01/23/2013 [place]ation [facility] [place] [address] [place], [place] [phone] Family Medicine, Physician [address] [place], [place] 329261 Social History Tobacco Use Types Packs/Day Years [...] on filedocumented in this encounter Care Teams First Aid Teacher Relationship Specialty Start Date End Date Britany Brito MD [address] [place] [address] [place] [address] PCP - General 04/13/17 02/21/23 documented as of this encounter
--- OUTSIDE RECORDS SUMMARY | 2025-06-24 20:49 | XMS_ITS | Encounter Summary ---
Author Organization [facility] Address [address] [place] [address] Phone Care Team Providers Care Direct Service Professional Name Role Phone Britany Brito MD Primary Care Provider Encounter Details Date Type Department Care Team (Late st Contact Info) Description 02/25/2014 Documentation [facility] [place] [address] [place], [place] [phone] Family Medicine, Physician [address] [place], [place] 394981 Social History Tobacco Use Types Packs/Day Years [...] on filedocumented in this encounter Care Teams Direct Service Professional Relationship Specialty Start Date End Date Britany Brito MD [address] [place] [address] [place] [address] PCP - General 04/13/17 02/21/23 documented as of this encounter
--- OUTSIDE RECORDS SUMMARY | 2025-06-24 20:49 | XMS_ITS | Encounter Summary ---
Author Organization [facility] Address [address] [place] [address] Phone Care Team Providers Care Tow Operator Name Role Phone Britany Brito MD Primary Care Provider Encounter Details Date Type Department Care Team (Late st Contact Info) Description 04/19/2017 Conversion Encounter [facility] [address] [place] [address] Social History Tobacco Use Types Packs/Day Years [...] on filedocumented in this encounter Care Teams Tow Operator Relationship Specialty Start Date End Date Britany Brito MD [address] [place] [address] PCP - General 04/13/17 02/21/23 documented as of this encounter
--- OUTSIDE RECORDS SUMMARY | 2025-06-24 20:49 | XMS_ITS | Encounter Summary ---
Author Organization [facility] Address [address] [place] [address] Phone Care Team Providers Care Audit Clerks Supervisor Name Role Phone Britany Brito MD Primary Care Provider Encounter Details Date Type Department Care Team (Late st Contact Info) Description 08/25/2011 Documentation [facility] [place] [address] [place], [place] [phone] Family Medicine, Physician [address] [place], [place] 728791 Social History Tobacco Use Types Packs/Day Years [...] on filedocumented in this encounter Care Teams Audit Clerks Supervisor Relationship Specialty Start Date End Date Britany Brito MD [address] [place] [address] [place] [address] PCP - General 04/13/17 02/21/23 documented as of this encounter
--- OUTSIDE RECORDS SUMMARY | 2025-06-24 20:49 | XMS_ITS | Encounter Summary ---
Author Organization [facility] Address [address] [place] [address] Phone Care Team Providers Care Steam Table Attendant Name Role Phone Britany Brito MD Primary Care Provider [phone] Encounter Details Date Type Department Care Team (Late st Contact Info) Description 07/04/2010 Documentation [facility] [place] [address] [place], [place] [phone] Family Medicine, Physician [address] [place], [place] 073641 Social History Tobacco Use Types Packs/Day Years [...] on filedocumented in this encounter Care Teams Steam Table Attendant Relationship Specialty Start Date End Date Britany Brito MD [address] [place] [address] [place] [address] PCP - General 04/13/17 02/21/23 documented as of this encounter
--- OUTSIDE RECORDS SUMMARY | 2025-06-24 20:49 | XMS_ITS | Encounter Summary ---
Author Organization [facility] Address [address] [place] [address] Phone Care Team Providers Care Grocery Store Manager Name Role Phone Britany Brito MD Primary Care Provider Encounter Details Date Type Department Care Team (Late st Contact Info) Description 07/05/2012 Documentation [facility] [place] [address] [place], [place] [phone] Family Medicine, Physician [address] [place], [place] 747341 Social History Tobacco Use Types Packs/Day Years [...] on filedocumented in this encounter Care Teams Grocery Store Manager Relationship Specialty Start Date End Date Britany Brito MD [address] [place] [address] [place] [address] PCP - General 04/13/17 02/21/23 documented as of this encounter
--- OUTSIDE RECORDS SUMMARY | 2025-06-24 20:49 | XMS_ITS | Encounter Summary ---
Author Organization [facility] Address [address] [place] [address] Phone Care Team Providers Care Electronics Assembler Name Role Phone Britany Brito MD Primary Care Provider Encounter Details Date Type Department Care Team (Late st Contact Info) Description 01/23/2013 Documentation [facility] [place] [address] [place], [place] [phone] Family Medicine, Physician [address] [place], [place] 712001 Social History Tobacco Use Types Packs/Day Years [...] on filedocumented in this encounter Care Teams Electronics Assembler Relationship Specialty Start Date End Date Britany Brito MD [address] [place] [address] [place] [address] PCP - General 04/13/17 02/21/23 documented as of this encounter
--- OUTSIDE RECORDS SUMMARY | 2025-06-24 20:49 | XMS_ITS | Encounter Summary ---
Author Organization [facility] Address [address] [place] [address] Phone Care Team Providers Care Cisco Engineer Name Role Phone Britany Brito MD Primary Care Provider [phone] Encounter Details Date Type Department Care Team (Late st Contact Info) Description 06/22/2014 Documentation [facility] [place] Family [place] [address] [place], [place] [phone] Family Medicine, Physician [address] [place] [address] Social History Tobacco Use Types Packs/Day Years [...] on filedocumented in this encounter Care Teams Cisco Engineer Relationship Specialty Start Date End Date Britany Brito MD [address] [place] [address] [place] [address] PCP - General 04/13/17 02/21/23 documented as of this encounter
--- OUTSIDE RECORDS SUMMARY | 2025-06-24 20:49 | XMS_ITS | Encounter Summary ---
Author Organization [facility] Address [address] [place] [address] Phone Care Team Providers Care Paid Search Manager Name Role Phone Britany Brito MD Primary Care Provider Encounter Details Date Type Department Care Team (Late st Contact Info) Description 10/26/2011 Documentation [facility] [place] Family Medicine [address] [place], [place] [phone] Family Medicine, Physician [address] [place], [place] 706521 Social History Tobacco Use Types Packs/Day Years [...] on filedocumented in this encounter Care Teams Paid Search Manager Relationship Specialty Start Date End Date Britany Brito MD [address] [place] [address] [place] [address] PCP - General 04/13/17 02/21/23 documented as of this encounter
--- OUTSIDE RECORDS SUMMARY | 2025-06-24 20:49 | XMS_ITS | Encounter Summary ---
Author Organization [facility] Address [address] [place] [address] Phone Care Team Providers Care Account Analyst Name Role Phone Britany Brito MD Primary Care Provider Encounter Details Date Type Department Care Team (Late st Contact Info) Description 06/22/2014 Documentation [facility] [place] [address] [place], [place] [phone] Family Medicine, Physician [address] [place] [address] Social History Tobacco Use Types Packs/Day Years [...] on filedocumented in this encounter Care Teams Account Analyst Relationship Specialty Start Date End Date Britany Brito MD [address] [place] [address] [place] [address] PCP - General 04/13/17 02/21/23 documented as of this encounter
--- OUTSIDE RECORDS SUMMARY | 2025-06-24 20:49 | XMS_ITS | Encounter Summary ---
Author Organization [facility] Address [address] [place] [address] Phone Care Team Providers Care Hospitality Host Name Role Phone Britany Brito MD Primary Care Provider Encounter Details Date Type Department Care Team (Late st Contact Info) Description 05/29/2011 Documentation [place] Family Medicine [address] [place], [place] [phone] Family Medicine, Physician [address] [place], [place] 344351 Social History Tobacco Use Types Packs/Day Years [...] on filedocumented in this encounter Care Teams Hospitality Host Relationship Specialty Start Date End Date Britany Brito MD [address] [place] [address] [place] [address] PCP - General 04/13/17 02/21/23 documented as of this encounter
--- OUTSIDE RECORDS SUMMARY | 2025-06-24 20:49 | XMS_ITS | Encounter Summary ---
Author Organization [facility] Address [address] [place] [address] Phone Care Team Providers Care Manager Clinical Pharmacy Name Role Phone Britany Brito MD Primary Care Provider Encounter Details Date Type Department Care Team (Late st Contact Info) Description 07/30/2013 Documentation [facility] [place] [address] [place], [place] [phone] Family Medicine, Physician [address] [place], [place] 003381 Social History Tobacco Use Types Packs/Day Years [...] on filedocumented in this encounter Care Teams Manager Clinical Pharmacy Relationship Specialty Start Date End Date Britany Brito MD [address] [place] [address] [place] [address] PCP - General 04/13/17 02/21/23 documented as of this encounter
--- OUTSIDE RECORDS SUMMARY | 2025-06-24 20:49 | XMS_ITS | Encounter Summary ---
Author Organization [facility] Address [address] [place] [address] Phone Care Team Providers Care Personal Injury Specialist Name Role Phone Britany Brito MD Primary Care Provider [phone] Encounter Details Date Type Department Care Team (Late st Contact Info) Description 05/29/2011 Documentation [facility] [place] [address] [place], [place] [phone] Family Medicine, Physician [address] [place], [place] 115501 Social History Tobacco Use Types Packs/Day Years [...] on filedocumented in this encounter Care Teams Personal Injury Specialist Relationship Specialty Start Date End Date Britany Brito MD [address] [place] [address] [place] [address] PCP - General 04/13/17 02/21/23 documented as of this encounter
--- OUTSIDE RECORDS SUMMARY | 2025-06-24 20:49 | XMS_ITS | Encounter Summary ---
Author Organization [facility] Address [address] [place] [address] Phone Care Team Providers Care Intertype Operator Name Role Phone Britany Brito MD Primary Care Provider [phone] Encounter Details Date Type Department Care Team (Late st Contact Info) Description 02/23/2015 [place]ation [facility] [place] [address] [place], [place] [phone] Family Medicine, Physician [address] [place] [address] Social History Tobacco Use Types Packs/Day Years [...] on filedocumented in this encounter Care Teams Intertype Operator Relationship Specialty Start Date End Date Britany Brito MD [address] [place] [address] [place] [address] PCP - General 04/13/17 02/21/23 documented as of this encounter
== END 2025-06-24 15:12 | disposition home or self-care (01) ==
LOC: HO.HWS 14:41
PROVIDERS: PCP Nurse Practitioner Family; Visit Provider Advanced Practice Midwife
DX: Z30.432 Encounter for removal of intrauterine contraceptive device (principal)
CPT/HCPCS: 58301

== ENCOUNTER → 2025-06-24 14:40 | Outpatient (BNVA) | payer BC, SELFPAY | PROVIDERS: PCP Nurse Practitioner Family; Visit Provider Advanced Practice Midwife | DX: Z30.432 Encounter for removal of intrauterine contraceptive device (principal) | CPT/HCPCS: 58301 ==